=== PATIENT | female | born 1960 | race Caucasian/White ===

== ENCOUNTER 2023-07-18 16:58 | Inpatient (IN) | payer MEDICARE, SELFPAY ==
[2023-07-15 20:10] VITALS: BP 168/125
[2023-07-15 20:32] VITALS: BP 143/91
[2023-07-15 20:39] VITALS: BMI 16.8
[2023-07-15 20:49] LABS: % Basophils 0.3 % (0-2); % Immature Granulocytes 0.4 % (0-0.5); % Lymphocytes 10.8 % (20.5-51.1); % Monocytes 5.1 % (1.7-9.3); % Neutrophils 82.4 % (42.2-75.2); Absolute Basophils 0.1 10^3/uL (0-0.2); Absolute Eosinophils 0.2 10^3/uL (0-0.7); Absolute Immature Granulocytes 0.1 10^3/uL (0-0.05); Absolute Lymphocytes 1.9 10^3/uL (1.2-3.4); Absolute Monocytes 0.9 10^3/uL (0.1-0.6); Absolute Neutrophils 14.3 10^3/uL (1.4-6.5); Hematocrit 45.5 % (37.0-47.0); Hemoglobin 16.3 g/dL (12.0-16.0); Mean Corp Hgb Conc. 35.8 g/dL (33.0-37.0); Mean Corpuscular Hgb 34.9 pg (27.0-31.0); Mean Corpuscular Volume 97.4 fL (81.0-99.0); Mean Platelet Volume 9.8 fL (7.4-10.4); Nucleated Red Blood Cells % 0 %; Platelet Count 347 10^3/uL (130-400); Red Blood Cell Count 4.67 10^6/uL (4.20-5.40); Red Cell Dist. Width 12.4 % (11.5-14.5); White Blood Cell Count 17.4 10^3/uL (4.8-10.8)
[2023-07-15] MEDS: DILAUDID 1 MG IV ×2 (20:58→22:45)
[2023-07-15 21:00] VITALS: BP 148/94
[2023-07-15 21:16] LABS: ALT (SGPT) 20 U/L (0-35); AST (SGOT) 25 U/L (14-36); Albumin 4.4 g/dl (3.5-5.0); Alkaline Phosphatase 139 U/L (38-126); Blood Urea Nitrogen 35 mg/dl (7-17); Calcium 10.6 mg/dl (8.4-10.2); Carbon Dioxide 31 mmol/L (22-30); Chloride 102 mmol/L (98-107); Estimated Creatinine Clearance 75 ml/min; Glucose 124 mg/dl (70-99); Lipase 89 U/L (23-300); Potassium 3.6 mmol/L (3.5-5.1); Sodium 141 mmol/L (135-145); Total Bilirubin 0.3 mg/dl (0.2-1.3); Total Protein 7.3 g/dl (6.3-8.2); eGFR > 60.00
--- NOTE | 2023-07-15 21:54 | ED.GENMED ---
History of Present Illness
General
Chief Complaint: Abdominal Pain
Source: patient
Exam Limitations: none
Time Seen by Provider: 07/15/23 20:56
Nursing documentation reviewed up to this point in time: agreed with
Travel History
Have you had any contact with someone who has COVID-19?: No
Do you have any symptoms of coronavirus? Fever > 100 degrees, chills, cough, shortness of breath, sore throat, loss of taste or smell, muscle aches, or headache?: No
History of Present Illness
History of Present Illness:
The patient is a 62-year-old female with a past medical history of chronic pain on chronic opioids. Patient reports that she frequently has episodes of vomiting abdominal pain but since 2 AM this morning, she has had extreme right-sided abdominal
pain and multiple episodes of vomiting. The patient also reports mild diarrhea.
Past History
Past History
ED Past Medical History: Asthma, Fibromyalgia, HTN and Other (Joint pain)
ED Past Surgical History: Appendectomy (questionable) and Other (Colostomy with hernia)
Social History
Tobacco: Smoker
Alcohol: None
Drug: None
Personal: Other (Seperated)
Living: other
Employment: Other
Family History
Family History: Other
Review of Systems
Review of Systems
Allergies reviewed?: Yes
All Other Systems: ROS reviewed and negative except as documented in HPI and ROS
Constitutional: Reports no symptoms
EENT: Reports no symptoms
Respiratory: Reports no symptoms
Cardiac: Reports no symptoms
ABD/GI: Reports abdominal pain, vomiting and diarrhea
: Reports no symptoms
Musculoskeletal: Reports no symptoms
Skin: Reports no symptoms
Neurological: Reports no symptoms
Endocrine: Reports no symptoms
Hematologic/Lymphatic: Reports no symptoms
Psychiatric: Reports no symptoms
Phy Exam
Physical Exam
Physical Exam:
Physical Exam
General: Patient appears chronically ill and cachectic. Smells of cigarettes
Neck: supple. no meningeal signs. Dry mucous membrane
Heart: Tachycardic
Lungs: no acute respiratory distress. clear bilaterally
Abdomen: Colostomy bag present. Normal bowel sounds. Right sided abdominal tenderness. Nondistended
Neuro: alert and oriented. no focal neurological deficits
Skin: no rash
Psychiatric: well kept. interactive and cooperative
Extremities: no edema. no calf tenderness. negative homans. good distal pulses
Course
Orders/Labs/Results
Orders:
Orders
07/15/23 20:42
Complete Blood Count/With Diff Urgent
Comprehensive Metabolic Panel Urgent
Lipase Urgent
07/15/23 20:56
HYDROmorphone [Dilaudid] 1 mg IV NOW STA
07/15/23 22:29
0.9% Sodium Chloride 1000 ml [Nss] 1,000 ml IV BOLUS
Iohexol [Omnipaque] See Protocol PO NOW STA
07/15/23 22:30
Ondansetron Injectable [Zofran] 4 mg IV NOW STA
07/15/23 22:42
HYDROmorphone [Dilaudid] 1 mg IV NOW STA
07/15/23 22:47
Urinalysis Reflex To Culture Urgent
Date Specimen was Collected: 07/16/23
Time Specimen was Collected: 03:01
07/15/23 23:04
Nicotine [Nicoderm Transdermal] 21 mg TRANSDERM DAILY ONE
07/16/23 00:45
CT Abd/pel (oral only)-[facility] Only Urgent
Reason For Exam: R sided abdominal pain
Abnormal Lab Results
07/15/23
20:42
WBC 17.4 H 10^3/uL
(4.8-10.8)
Hgb 16.3 H g/dL
(12.0-16.0)
MCH 34.9 H pg
(27.0-31.0)
Abs Immat Gran (auto) 0.1 H 10^3/uL
(0-0.05)
Absolute Neuts (auto) 14.3 H 10^3/uL
(1.4-6.5)
Absolute Monos (auto) 0.9 H 10^3/uL
(0.1-0.6)
Neutrophils % 82.4 H %
(42.2-75.2)
Lymphocytes % 10.8 L %
(20.5-51.1)
Carbon Dioxide 31 H mmol/L
(22-30)
BUN 35 H mg/dl
(7-17)
Creatinine 0.5 L mg/dL
(0.6-1.0)
Glucose 124 H mg/dl
(70-99)
Calcium 10.6 H mg/dl
(8.4-10.2)
Alkaline Phosphatase 139 H U/L
(38-126)
07/15/23 20:42
07/15/23 20:42
Vital Signs
Initial and Last Documented VS:
Initial Vital Signs
Temp Pulse Resp BP Pulse Ox
97.8 F 124 20 168/125 97
07/15/23 20:10 07/15/23 20:10 07/15/23 20:10 07/15/23 20:10 07/15/23 20:10
Last Documented Vital Signs
Temp Pulse Resp BP Pulse Ox
98.7 F 103 10 162/104 91
07/15/23 23:35 07/16/23 03:04 07/16/23 03:04 07/16/23 03:04 07/16/23 01:00
MDM/Problems Addressed
Differential Diagnosis Includes:
Acute cholecystitis, small bowel obstruction, acute diverticulitis
MDM/Problems Addressed:
Patient presents with acute vomiting abdominal pain
Chronic conditions affecting care: Previous abdomnial surgery
Acute Exacerbation and/or Progression of Chronic Illness: Previous abdomnial surgery
*Radiology
Radiology exam reviewed: radiology read reviewed
*Pulse Oximetry
Patient hypoxic: no
*EKG
Interpreted by ED Provider?: NA
*Apartment Leasing Specialist Interpretation
Rate: tachycardiac
Interpretation: abnormal
Rhythm: sinus
*Critical Care Note
Total Time (30-74mins, 75-104mins- exclusive of procedures): Not Applicable
Data Reviewed
Review of Other/Old Records Reveals: Discharge Summary (Discharge summary reviewed from January 2023 when patient was admitted for acute gastritis and intractable abdominal pain)
Source: patient
Patient Management
Discussion with other providers: Hospitalist
Escalation/DeEscalation of care consider admission/obs:
Patient is still having abdominal pain and nausea. She is tachycardic and is clinically dehydrated. CT shows no evidence of acute surgical issue. Patient's symptoms may be due to gastritis.
ED Attending Note
-
Portions of this chart may have been created with voice recognition software.� Occasional wrong word or��sound alike� substitutions may have occurred due to the inherent limitations of voice recognition software.
Discharge Plan
Departure
Patient Disposition: Admit
Date of Disposition: 07/16/23
Time of Disposition: 03:06
Admit to: Med/Surg
Presentation/result/management discussed w/ accepting MD/DO: Hospitalist
Patient with high blood pressure during this ER visit?: Yes
Condition: Good
Discharge Problem:
Dehydration, Severe protein-calorie malnutrition, Intractable abdominal pain
Prescriptions:
No Action
cyclobenzaprine 10 MG tablet
10 mg PO DAILYPRN PRN (Reason: muscle spasm)
Savella 100 MG tablet
100 mg PO DAILY@0000
polyethylene glycol 3350 [Miralax] 17 gram Powder In Packet
17 g PO DAILY PRN (Reason: constipation)
metoprolol succinate 200 mg Tablet Extended Release 24 Hr
100 mg PO DAILY@0000
Theragen Tablet
1 tab PO HS
morphine 200 mg Tablet Extended Release
200 mg PO Q8H
Patient Comments:
01/29/2023, patient filled this medication on 01/24/2023 for 90 tablets according to PDMP.
clonidine 0.3 mg/24 hr Patch Weekly
1 patch TRANSDERMAL QWEEK
Patient Comments:
02/08/2023, patient is currently wearing a patch on her left chest. Patient states that the patch should have been changed yesterday (02/07/2023) but she did not change it.
Excedrin Migraine 250-250-65 mg Tablet
2 tab PO Q6H PRN (Reason: migraine)
oxycodone 20 mg Tablet
40 mg PO Q8H PRN (Reason: severe withdrawal)
Patient Comments:
02/08/2023, patient filled this medication on 01/24/2023 for 90 tablets according to PDMP.
oxycodone 20 mg Tablet
20 mg PO Q8H PRN (Reason: mild withdrawal)
Patient Comments:
02/08/2023, patient filled this medication on 01/24/2023 for 90 tablets according to PDMP.
Referrals:
UNKNOWN - PT DOES,NOT KNOW [Family Provider] -
Interventions
Interventions:
*Risk Screen - Suicide Last Done: 07/15/23 20:39
*General Assessment Last Done: 07/15/23 20:20
*Neglect/Abuse Screening Last Done: 07/15/23 20:20
ED- Fall Risk Assessment Last Done: 07/15/23 20:20
*ED COVID-19 Vaccine History Last Done: 07/15/23 20:20
IM-Dcnwqr-Ushdiekvbe Assessment Last Done: 07/15/23 23:30
Discharge Date and Time
Print Language: MALAY
[2023-07-15 22:00] VITALS: BP 154/93
[2023-07-15] MEDS: OMNIPAQUE 50 ML PO (22:37)
[2023-07-15] MEDS: ZOFRAN 4 MG IV (22:37)
[2023-07-15] MEDS: NSS 1000 IV (22:37)
[2023-07-15 23:00] VITALS: BP 144/100
[2023-07-15] MEDS: NICODERM TRANSDERMAL 21 MG TRANSDERM (23:31)
[2023-07-16] VITALS (14 sets, daily range): BP systolic 119–162; BP diastolic 74–104; PULSE 84–96; BMI 16.2
[2023-07-16 03:23] LABS: Urine Albumin Negative (Neg - Trace); Urine Bilirubin Negative (Negative); Urine Character Clear (Clear); Urine Color Yellow; Urine Glucose Negative (Negative); Urine Ketone Negative (Negative); Urine Leukocyte 2+ (Negative); Urine Nitrite Negative (Negative); Urine Occult Blood Negative (Negative); Urine Specific Gravity 1.015 (<1.030); Urine Urobilinogen Negative (Neg - 1+); Urine pH 6.5 (5.0-9.0)
[2023-07-16 03:33] LABS: Urine Squamous Cell 21-25 /LPF (Few)
[2023-07-16 03:34] LABS: Urine Bacteria Few (Negative); Urine White Cell 26-30 /HPF (0-5)
[2023-07-16] MEDS: DILAUDID 1 MG IV (04:28)
--- NOTE | 2023-07-16 04:53 | HPS.HSE ---
Family Physician
-
Family Physician: NOT KNOW UNKNOWN - PT DOES
Chief Complaint
-
Abd Pain
History of Present Illness
Patient is a 62y F with PMH significant for chronic pain syndrome and chronic opioid dependence who presents to ED complaining of abdominal pain. Patient states that she has had issues with chronic abdominal pain for the past 1 1/2 years or so.
She notes that she is incapable to eating solid foods. She has episodes of 'projectile' vomiting when she attempts to do so. Patient states that she had N/V on evening around 2 AM. She then developed LUQ abdominal pain with radiation
into the L flank which persisted throughout this evening prompting evaluation in the ED.
Patient had similar presentation in 01/2023.
Patient is on chronic pain medications including Fentanyl 200mcg every 3 days. She states that she 'starts getting withdrawal' on Day #2 and she takes oxycodone - for withdrawal symptoms > breakthrough pain.
She denies any recent changes in ostomy function, stools appearance, etc.
She denies any fevers / chills.
In the ED, she complains of headache typical of her usual migraines.
Medical History
Past Medical History
Past Medical History: Reports Other
Additional Past Medical History:
Chronic Pain Syndrome
Chronic Opioid Dependence
Fibromyalgia
COPD
Migraine Headache
Parastomal Hernia
Past Surgical History: Reports Other
Additional Past Surgical History:
Appendectomy
Partial Colectomy / Colostomy Formation
Social History
Tobacco: Smoker (Current every day smoker. 2-3 ppd. > 100 pack years.)
Alcohol: None
Drug: None
Family History
Family History: Not pertinent
Allergies / Home Medications
Allergies reflects when Allergies were last updated in [facility].
Home Medications with original date entered in [facility]
Allergy/Medication List:
Allergies
Allergy/AdvReac Type Severity Reaction Status Date / Time
Cephalosporins Allergy Unknown Verified 07/15/23 20:19
clotrimazole Allergy Unknown Verified 07/15/23 20:19
nystatin Allergy Unknown Verified 07/15/23 20:19
Penicillins Allergy Unknown Verified 07/15/23 20:19
Tetracyclines Allergy Unknown Verified 07/15/23 20:19
triamcinolone Allergy Unknown Verified 07/15/23 20:19
Home Medications
cyclobenzaprine 10 mg tablet 10 mg PO DAILYPRN PRN muscle spasm 11/07/18
milnacipran 100 mg tablet (Savella) 100 mg PO DAILY@0000 fibromyalgia 11/07/18
twtdjnh-duarnjlufylzk-msheajcb 250 mg-250 mg-65 mg tablet (Excedrin Migraine) 2 tab PO Q6H PRN migraine 02/08/23
clonidine 0.3 mg/24 hr weekly transdermal patch 1 patch transdermal QWEEK Blood Pressure 02/08/23
metoprolol succinate 200 mg tablet,extended release 24 hr 100 mg PO DAILY@0000 Blood Pressure 02/08/23
oxycodone 20 mg tablet 20 mg PO Q8H PRN mild withdrawal 02/08/23
oxycodone 20 mg tablet 40 mg PO Q8H PRN severe withdrawal 02/08/23
polyethylene glycol 3350 17 gram oral powder packet (Miralax) 17 g PO DAILY PRN constipation 02/08/23
therapeutic multivitamin 1 tab PO HS supplement 02/08/23
fentanyl 100 mcg/hr transdermal patch 2 patch transdermal Q72H 07/16/23
simethicone 80 mg chewable tablet 80 mg PO QID PRN gas pain 07/16/23
Review of Systems
-
History Source: Patient
A 12 point ROS was completed and negative except as noted: Yes
Constitutional: Reports Fatigue; Denies Fever or Chills
Respiratory: Denies Cough or Trouble Breathing
Cardiac: Denies Chest Pain or Palpitations
Abdomen/GI: Reports Abdominal Pain, Nausea, Vomiting and Anorexia; Denies Diarrhea, Constipated, Bloody Stools or Black Stools
: Reports Flank Pain; Denies Dysuria or Frequency
Musculoskeletal: Reports Joint Pain; Denies Edema
Neurological: Reports Headache; Denies Dizzy, Weakness or Numbness
Psych: Reports Depression; Denies Anxiety
Physical Exam
Vital Signs
Vital Signs
Temp Pulse Resp BP Pulse Ox
98.6 F 102 14 123/91 92
07/16/23 03:00 07/16/23 04:15 07/16/23 04:15 07/16/23 04:00 07/16/23 04:15
Physical Exam
General: Other (62y F appears older than stated age - in moderate distress due to pain.)
HEENT: Other (Dry MM, frail / cachectic.)
Respiratory: Other (Few scattered squeaks and wheezes. No focal rales / rhonchi.)
Cardiac: S1/S2 and Regular Rhythm
GI: Soft, Non Distended, Normal Bowel Sounds and Other (LLQ ostomy with parastomal hernia. No tenderness, bleeding or discharge around ostomy. Pos voluntary guarding / apparent tenderness LUQ.)
Musculoskeletal: No Clubbing, No Cyanosis and No Edema
Neuro: AO x 3
Laboratory Results
-
07/15/23 20:42
07/15/23 20:42
Laboratory Results
Total Bilirubin 0.3 mg/dl (0.2-1.3) 07/15/23 20:42
AST 25 U/L (14-36) 07/15/23 20:42
ALT 20 U/L (0-35) 07/15/23 20:42
Alkaline Phosphatase 139 U/L (38-126) H 07/15/23 20:42
Lipase 89 U/L (23-300) 07/15/23 20:42
Impression/Plan
-
A/P: Patient is a 62y F with PMH significant for chronic pain and chronic opioid use who presents to ED complaining of abdominal pain.
Acute on Chronic Abdominal Pain
Chronic Pain Syndrome
Chronic Opioid Dependence
- Observe overnight for further evaluation / attempts at symptom control.
- CT without clear evidence of etiology for her new pain.
- Continue usual home med regimen. IV Dilaudid for breakthrough pain.
- GI evaluation for additional recommendations.
- IV PPI, avoid NSAIDs, etc.
- Follow for any new / worsening symptoms.
- Follow-up with Pain Management as an outpatient.
- Continue efforts to reduce chronic narcotic dosing (was previously on 400mcg dose of Fentanyl).
Tobacco Use Disorder
- Smokes in excess of 2 ppd.
- Patient notes that she has cough and breathing difficulty when she is in her room - as do other family members.
- I suggested that this may be due to the significant amount of smoking / accumulation in that room, but she does not believe this is the case.
- Nebs PRN.
- Strongly encourage smoking cessation.
Leukocytosis
- This appears to be somewhat chronic.
- No other findings at present to suggest infectious process.
- Observe off of abx.
- Consider formal Hematology evaluation.
DVT Prophylaxis: Lovenox
Code Status: Full
[2023-07-16] MEDS: LR 1000 IV ×2 (07:13→16:55)
[2023-07-16] MEDS: DURAGESIC 100 MCG/HR PATCH 2 PATCH TRANSDERM (07:48)
[2023-07-16] MEDS: CATAPRES-TTS-3 0.299999999999999989 MG TRANSDERM (07:54)
[2023-07-16] MEDS: MIRALAX PO (08:00)
--- NOTE | 2023-07-16 11:29 | CON.GI ---
Addendum entered and electronically signed by Gerald Malloy MD 07/16/23 12:03:
Patient seen and examined, agree with PA phil. Patient presents with increasing abdominal pain and vomiting. These symptoms are similar to her presentation in January where EGD showed multiple nonbleeding duodenal ulcers. She has been
noncompliant and PPI, and still taking NSAIDs including Excedrin. She is on chronic narcotics, though no change in these medications. There is no signs of bleeding and she has been hemodynamically stable. CT scan and labs were essentially
unremarkable, on exam has mild left-sided tenderness. She did have some weight loss though is now most recently been stable. Most likely etiology of her pain is likely from duodenal ulcers again in the setting of Excedrin without PPI, with likely
chronic underlying delayed gastric emptying secondary to narcotics. At this point we will continue clear liquid diet, PPI twice daily, plan repeat EGD that she was supposed to have as an outpatient on Tuesday. Again stressed the importance of not
taking Excedrin or other NSAIDs and continuing PPI.
Original Note:
Consultation
-
Date/Time Consultation Requested: 07/16/23 0602
Date/Time Consultation Performed: 07/16/23 1100
Requesting Provider: Dr. Amanda
Performing Provider: Dr. Malloy / Loni Brennan PA-C
Reason for Consultation: epigastric pain/nausea/vomiting
Medical History
Chief Complaint / HPI
Chief Complaint: abdominal pain
History of Present Illness:
This is a 62 year old female with a past medical history of asthma/COPD, chronic pain syndrome on chronic opiates, fibromyalgia, tobacco use, h/o prior bowel obstruction with partial colectomy and colostomy (2013), and duodenal ulcers who complains
of worsening upper abdominal pain. Patient was admitted at in January 2023 with similar symptoms and was found to have severe gastritis and multiple non-bleeding duodenal ulcers. She is known to our GI practice, saw me in May in the office and
was scheduled for repeat endoscopy on June [address] Pryor to assess ulcer healing. Unfortunately patient canceled procedure. She is noncompliant with taking her PPI or avoiding NSAIDs. She states that she did not tolerate pantoprazole due to
gas/bloating, so started taking Zantac instead. She continues to take Excedrin every day. No other NSAIDs. She states she has had ongoing abdominal pain but that it worsened significantly yesterday, with nausea and episodes of projectile vomiting.
No hematemesis or coffee grounds emesis. She notes no black, tarry or bloody output from the colostomy. Weight has been stable; she remains on a liquid diet, drinking Boost multiple times a day. Labs in the ER reviewed: WBC 17.4, Hgb 16.3, platelet
347, Na 141, K 3.6, Cl 102, CO2 31, BUN 35, creatinine 0.5, bili 0.3, AST 25, ALT 20, alk phos 139, lipase 89.
Past Medical History
Past Medical History: Asthma, COPD, Fibromyalgia and Other (chronic pain syndrome (on chronic narcotic pain meds), tobacco use, bowel obstruction w/ partial colectomy and colostomy (2013), PUD)
Past Surgical History: Appendectomy and Other (see above)
Social History
Tobacco: Smoker (3 PPD)
Alcohol: None
Drug: None
Family History
Family History: Other (no family history of GI malignancies)
Allergies / Home Medications
Allergy/AdvReac Type Severity Reaction Status Date / Time
Cephalosporins Allergy Unknown Verified 07/15/23 20:19
clotrimazole Allergy Unknown Verified 07/15/23 20:19
nystatin Allergy Unknown Verified 07/15/23 20:19
Penicillins Allergy Unknown Verified 07/15/23 20:19
Tetracyclines Allergy Unknown Verified 07/15/23 20:19
triamcinolone Allergy Unknown Verified 07/15/23 20:19
�Medication �Instructions �Recorded
cyclobenzaprine 10 mg tablet 10 mg PO DAILYPRN PRN muscle spasm 11/07/18
milnacipran 100 mg tablet (Savella) 100 mg PO DAILY@0000 fibromyalgia 11/07/18
kzwhwnk-pyukfahiutzlu-jmiawuim 250 2 tab PO Q6H PRN migraine 02/08/23
mg-250 mg-65 mg tablet (Excedrin
Migraine)
clonidine 0.3 mg/24 hr weekly 1 patch transdermal QWEEK Blood 02/08/23
transdermal patch Pressure
metoprolol succinate 200 mg 100 mg PO DAILY@0000 Blood Pressure 02/08/23
tablet,extended release 24 hr
oxycodone 20 mg tablet 20 mg PO Q8H PRN mild withdrawal 02/08/23
oxycodone 20 mg tablet 40 mg PO Q8H PRN severe withdrawal 02/08/23
polyethylene glycol 3350 17 gram 17 g PO DAILY PRN constipation 02/08/23
oral powder packet (Miralax)
therapeutic multivitamin 1 tab PO HS supplement 02/08/23
fentanyl 100 mcg/hr transdermal 2 patch transdermal Q72H 07/16/23
patch
simethicone 80 mg chewable tablet 80 mg PO QID PRN gas pain 07/16/23
Review of Systems
-
History Source: Patient
All other systems: A 12 pt ROS was Negative except as stated above in HPI
Vital Signs
Temp Pulse Resp BP Pulse Ox
98.6 F 96 6 147/89 91
07/16/23 03:00 07/16/23 09:45 07/16/23 09:45 07/16/23 09:00 07/16/23 09:45
Physical Exam
Exam
General: Other (cachectic)
Respiratory: Clear
Cardiac: Regular Rhythm
GI: Soft, Non Distended, Normal Bowel Sounds and Tender (+epigastric tenderness; left sided colostomy with brown stool)
Skin: Warm and Dry
Neuro: AO x 3
Psych: Calm
Results
WBC 17.4 10^3/uL (4.8-10.8) H 07/15/23 20:42
Hgb 16.3 g/dL (12.0-16.0) H 07/15/23 20:42
Hct 45.5 % (37.0-47.0) 07/15/23 20:42
MCV 97.4 fL (81.0-99.0) 07/15/23 20:42
Plt Count 347 10^3/uL (130-400) 07/15/23 20:42
Absolute Neuts (auto) 14.3 10^3/uL (1.4-6.5) H 07/15/23 20:42
Sodium 141 mmol/L (135-145) 07/15/23 20:42
Potassium 3.6 mmol/L (3.5-5.1) 07/15/23 20:42
Chloride 102 mmol/L (98-107) 07/15/23 20:42
Carbon Dioxide 31 mmol/L (22-30) H 07/15/23 20:42
BUN 35 mg/dl (7-17) H 07/15/23 20:42
Creatinine 0.5 mg/dL (0.6-1.0) L 07/15/23 20:42
Calcium 10.6 mg/dl (8.4-10.2) H 07/15/23 20:42
Total Bilirubin 0.3 mg/dl (0.2-1.3) 07/15/23 20:42
AST 25 U/L (14-36) 07/15/23 20:42
ALT 20 U/L (0-35) 07/15/23 20:42
Alkaline Phosphatase 139 U/L (38-126) H 07/15/23 20:42
Lipase 89 U/L (23-300) 07/15/23 20:42
Diagnostic Image Results:
CT Abdomen/Pelvis, 07/16/23:
Impression:
There is a left anterior abdominal and pelvic wall colostomy with a large parastomal hernia. No evidence for strangulation. No evidence for bowel obstruction.
No evidence for free intraperitoneal air.
Bilateral small nephroliths. No evidence for ureteral calculus.
Prior GI Procedures:
EGD:
02/10/23, Dr. Pryor
LA Grade A reflux esophagitis with no bleeding.
Biopsied.
- Abnormal esophageal motility with distal spasm.
- Significant gastritis. Biopsied.
- Multiple moderate sized non-bleeding duodenal ulcers
throughout the 2nd portion and causing narrowing of
the duodenum.
Colonoscopy: Never
Assessment / Plan
-
62 year old female with a history of asthma/COPD, chronic pain syndrome on chronic opiates, fibromyalgia, tobacco use, h/o prior bowel obstruction with partial colectomy and colostomy (2013), and duodenal ulcers who complains of worsening upper
abdominal pain. Patient was admitted at in January 2023 with similar symptoms and was found to have severe gastritis and multiple non-bleeding duodenal ulcers. She is known to our GI practice, saw me in May in the office and was scheduled for
repeat endoscopy on June [address] Pryor to assess ulcer healing. Unfortunately patient canceled procedure. She is noncompliant with taking her PPI or avoiding NSAIDs. She states that she did not tolerate pantoprazole due to gas/bloating, so started
taking Zantac instead. She continues to take Excedrin every day. No other NSAIDs. She states she has had ongoing abdominal pain but that it worsened significantly yesterday, with nausea and episodes of projectile vomiting. No hematemesis or coffee
grounds emesis. She notes no black, tarry or bloody output from the colostomy. Weight has been stable; she remains on a liquid diet, drinking Boost multiple times a day. Labs in the ER reviewed: WBC 17.4, Hgb 16.3, platelet 347, Na 141, K 3.6, Cl
102, CO2 31, BUN 35, creatinine 0.5, bili 0.3, AST 25, ALT 20, alk phos 139, lipase 89.
IMPRESSION / PLAN:
Abdominal Pain, suspect PUD/gastritis
- pt with known duodenal ulcers, noncompliant with taking PPI and avoiding NSAIDs
- continue IV PPI (Protonix)
- antiemetics PRN
- will plan for endoscopy - to discuss timing further with Dr. Malloy
Chronic Nausea, likely multifactorial secondary to opioid dependency, gastritis
- plan as above
We will follow.
-
-
Thank you for consultation and allowing me to participate in the patient's care. Please call the network operations analyst GI physician during the after hours with any questions or concerns.
--- NOTE | 2023-07-16 12:24 | W.PN.HOSP.TC ---
Today's Communication/Plan
-
.
Assessment / Plan
Assessment / Plan
Physical Exam
General: Other (62y F appears older than stated age - in moderate distress due to pain.)
HEENT: Other (Dry MM, frail / cachectic.)
Respiratory: Other (Few scattered squeaks and wheezes. No focal rales / rhonchi.)
Cardiac: S1/S2 and Regular Rhythm
GI: Soft, Non Distended, Normal Bowel Sounds and Other (LLQ ostomy with parastomal hernia. No tenderness, bleeding or discharge around ostomy. Pos voluntary guarding / apparent tenderness LUQ.)
Musculoskeletal: No Clubbing, No Cyanosis and No Edema
Neuro: AO x 3
Psych: no agitation
Patient is a 62y F with PMH significant for chronic pain and chronic opioid use who presents to ED complaining of abdominal pain.
Acute on Chronic Abdominal Pain
Chronic Pain Syndrome
Chronic Opioid Dependence
Better controlled
She requested Flexeril BID PRN
- CT without clear evidence of etiology for her new pain.
- Continue usual home med regimen. IV Dilaudid for breakthrough pain.
- IV PPI, avoid NSAIDs, etc.
- Follow for any new / worsening symptoms.
- Follow-up with Pain Management as an outpatient.
- Continue efforts to reduce chronic narcotic dosing (was previously on 400mcg dose of Fentanyl).
Tobacco Use Disorder
- Smokes in excess of 2 ppd.
- Patient notes that she has cough and breathing difficulty when she is in her room - as do other family members.
- I suggested that this may be due to the significant amount of smoking / accumulation in that room, but she does not believe this is the case.
- Nebs PRN.
- Strongly encourage smoking cessation.
Leukocytosis
- This appears to be somewhat chronic.
- No other findings at present to suggest infectious process.
- Observe off of abx.
- Consider formal Hematology evaluation.
DVT Prophylaxis: Lovenox
Code Status: Full
Total time spent to see the patient, examine the patient on the floor, review data and lab results, discuss treatment plan with patient, nursing staff around 45 minutes
Anticipated Discharge: 24 - 48 hours
Subjective/Interval History
-
Date of Service: July 16, 2023
Doing better
No chets pain
Objective Data
-
Vital Signs:
Vital Signs
Temp Pulse Resp BP Pulse Ox
98.6 F 96 6 147/89 91
07/16/23 03:00 07/16/23 09:45 07/16/23 09:45 07/16/23 09:00 07/16/23 09:45
[2023-07-16] MEDS: TYLENOL PO (12:45)
[2023-07-16] MEDS: TOPROL XL 100 MG PO (12:45)
[2023-07-16] MEDS: DILAUDID 0.5 MG IV ×2 (13:31→21:20)
[2023-07-16] MEDS: FLEXERIL 10 MG PO (15:20)
[2023-07-16] MEDS: ROXICODONE 20 MG PO (16:48)
[2023-07-16] MEDS: TYLENOL 1000 MG PO ×2 (16:48→21:17)
[2023-07-16] MEDS: LOVENOX 40 MG SC (16:56)
[2023-07-16] MEDS: PROTONIX IV 40 MG IV (19:58)
[2023-07-16] MEDS: NSS (PRESERVATIVE FREE) 10 ML IV (19:58)
[2023-07-17] MEDS: NON-FORMULARY ITEM 100 MG PO ×2 (00:28→23:11)
[2023-07-17] MEDS: ROXICODONE 20 MG PO ×3 (01:04→20:59)
[2023-07-17] MEDS: DILAUDID 0.5 MG IV ×5 (01:20→21:40)
[2023-07-17] MEDS: ZOFRAN 4 MG IV ×3 (01:24→16:33)
[2023-07-17] MEDS: LR 1000 IV ×2 (05:42→16:31)
[2023-07-17 06:00] VITALS: BMI 16.0
[2023-07-17 07:00] VITALS: BP 158/96
[2023-07-17 07:15] LABS: Hematocrit 41.7 % (37.0-47.0); Hemoglobin 14.1 g/dL (12.0-16.0); Mean Corp Hgb Conc. 33.8 g/dL (33.0-37.0); Mean Corpuscular Hgb 34.2 pg (27.0-31.0); Mean Corpuscular Volume 101.2 fL (81.0-99.0); Platelet Count 240 10^3/uL (130-400); Red Blood Cell Count 4.12 10^6/uL (4.20-5.40); Red Cell Dist. Width 12.1 % (11.5-14.5); White Blood Cell Count 11.1 10^3/uL (4.8-10.8)
[2023-07-17 07:46] LABS: Blood Urea Nitrogen 17 mg/dl (7-17); Carbon Dioxide 29 mmol/L (22-30); Chloride 103 mmol/L (98-107); Estimated Creatinine Clearance 69 ml/min; Glucose 86 mg/dl (70-99); Potassium 3.5 mmol/L (3.5-5.1); Sodium 139 mmol/L (135-145); eGFR > 60.00
[2023-07-17] MEDS: NSS (PRESERVATIVE FREE) 10 ML IV ×2 (08:31→20:48)
[2023-07-17] MEDS: TOPROL XL 100 MG PO (08:32)
[2023-07-17] MEDS: MIRALAX 17 GRAMS PO (08:32)
[2023-07-17] MEDS: PROTONIX IV 40 MG IV ×2 (08:32→20:48)
[2023-07-17] MEDS: TYLENOL 1000 MG PO ×3 (08:32→21:39)
[2023-07-17] MEDS: FLEXERIL 10 MG PO ×2 (09:42→20:59)
--- NOTE | 2023-07-17 10:20 | W.PN.HOSP.TC ---
Today's Communication/Plan
-
.
Assessment / Plan
Assessment / Plan
Physical Exam
General: Other (62y F appears older than stated age - no respiratory distress.)
HEENT: No deformitis
Respiratory: Other (Few scattered squeaks and wheezes. No focal rales / rhonchi.)
Cardiac: S1/S2 and Regular Rhythm
GI: Soft, Non Distended, Normal Bowel Sounds and Other (LLQ ostomy with parastomal hernia. No tenderness, bleeding or discharge around ostomy. Pos voluntary guarding / apparent tenderness LUQ.)
Musculoskeletal: No Clubbing, No Cyanosis and No Edema
Neuro: AO x 3
Psych: no agitation
Patient is a 62y F with PMH significant for chronic pain and chronic opioid use who presents to ED complaining of abdominal pain.
Acute on Chronic Abdominal Pain/ Chronic Pain Syndrome with opioid dependence
She reports pain is the same with no improvement. Pain in upper abdomen. Known duodenal ulcers in the past. No fever.
- CT abdomen/ pelvis, no acute findings.
- Continue usual home med regimen with oxycodone, Fentanyl, Flexeril. IV Dilaudid for breakthrough pain.
- IV PPI, avoid NSAIDs.
- Continue efforts to reduce chronic narcotic dosing (was previously on 400mcg dose of Fentanyl).
- Possible plan for EGD
Appreciate GI help
Tobacco Use Disorder
- Smokes in excess of 2 ppd.
- Nebs PRN.
- Strongly encourage smoking cessation.
Leukocytosis
- This appears to be somewhat chronic.
- No other findings at present to suggest infectious process.
- Observe off of abx.
# Severe protein-caloric malnutrition
# Hx of Tachycardia, on BB.
DVT Prophylaxis: Lovenox
Code Status: Full
Total time spent to see the patient, examine the patient on the floor, review data and lab results, discuss treatment plan with patient, nursing staff around 55 minutes
Anticipated Discharge: 24 - 48 hours
Subjective/Interval History
-
Date of Service: July 17, 2023
She report the pain is same quality in abdomen and with nausea
Objective Data
-
Labs:
Laboratory Results
07/17/23
06:42
WBC 11.1 H
Hgb 14.1
Hct 41.7
Plt Count 240 D
Sodium 139
Potassium 3.5
Chloride 103
Carbon Dioxide 29
BUN 17
Creatinine 0.5 L
Glucose 86
Calcium 10.0
Vital Signs:
Vital Signs
Temp Pulse Resp BP Pulse Ox
98.8 F 82 16 158/84 93
07/17/23 07:00 07/17/23 08:32 07/17/23 07:00 07/17/23 08:32 07/17/23 07:00
I&O
07/16/23 07/17/23 07/18/23
06:59 06:59 06:59
Intake Total 1200 / 1200
Balance 1200 / 1200
[2023-07-17] MEDS: NICODERM TRANSDERMAL 14 MG TRANSDERM (11:15)
--- NOTE | 2023-07-17 14:36 | W.PN.GI.CBS2 ---
Addendum entered and electronically signed by Pete Yu MD 07/17/23 14:44:
Nursing contacted me patient with choking with drinking.
Would recommend speech path eval but with EGD tmwr should not be done pre-procedure as needs to be NPO
Original Note:
Today's Communication / Plan
-
egd tmwr
Assessment / Plan
-
62 year old female with a history of asthma/COPD, chronic pain syndrome on chronic opiates, fibromyalgia, tobacco use, h/o prior bowel obstruction with partial colectomy and colostomy (2013), and duodenal ulcers who complains of worsening upper
abdominal pain. Patient was admitted at in January 2023 with similar symptoms and was found to have severe gastritis and multiple non-bleeding duodenal ulcers. She is known to our GI practice, saw me in May in the office and was scheduled for
repeat endoscopy on June [address] Pryor to assess ulcer healing. Unfortunately patient canceled procedure. She is noncompliant with taking her PPI or avoiding NSAIDs. She states that she did not tolerate pantoprazole due to gas/bloating, so started
taking Zantac instead. She continues to take Excedrin every day. No other NSAIDs. She states she has had ongoing abdominal pain but that it worsened significantly yesterday, with nausea and episodes of projectile vomiting. No hematemesis or coffee
grounds emesis. She notes no black, tarry or bloody output from the colostomy. Weight has been stable; she remains on a liquid diet, drinking Boost multiple times a day. Labs in the ER reviewed: WBC 17.4, Hgb 16.3, platelet 347, Na 141, K 3.6, Cl
102, CO2 31, BUN 35, creatinine 0.5, bili 0.3, AST 25, ALT 20, alk phos 139, lipase 89.
Leukocytosis improved today.
IMPRESSION / PLAN:
Abdominal Pain, suspect PUD/gastritis
- pt with known duodenal ulcers, noncompliant with taking PPI and avoiding NSAIDs
- continue IV PPI (Protonix) BID
- antiemetics PRN
- EGD ion Monday 07/17
- counseled to avoid NSAIDs pt states difficult bc of migraines recommend she d/w PCP
Chronic Nausea and regurgitation, likely multifactorial secondary to opioid dependency, gastritis
- plan as above
Subjective
Subjective
Date of Service: July 17, 2023
pain a little improved but got dilaudid this am
also mentions she has chronic regurg
Objective
Data Reviewed
Laboratory Data:
Laboratory Results
07/17/23 06:42
07/17/23 06:42
Laboratory Results
Total Bilirubin 0.3 mg/dl (0.2-1.3) 07/15/23 20:42
AST 25 U/L (14-36) 07/15/23 20:42
ALT 20 U/L (0-35) 07/15/23 20:42
Alkaline Phosphatase 139 U/L (38-126) H 07/15/23 20:42
Lipase 89 U/L (23-300) 07/15/23 20:42
Vital Signs and I&O:
Vital Signs
Temp Pulse Resp BP Pulse Ox
98.8 F 82 16 158/84 93
07/17/23 07:00 07/17/23 08:32 07/17/23 07:00 07/17/23 08:32 07/17/23 07:00
I&O
07/16/23 07/17/23 07/18/23
06:59 06:59 06:59
Intake Total 1200 / 1200
Balance 1200 / 1200
Physical Exam
Physical Exam
GI: Non Distended and Non Tender
[2023-07-17 14:43] VITALS: BMI 16.0
[2023-07-17 15:00] VITALS: BP 135/90
[2023-07-17] MEDS: LOVENOX 40 MG SC (17:38)
[2023-07-17 23:31] VITALS: BP 116/88; BP 136/72; BP 136/76; PULSE 77; PULSE 84; PULSE 99
[2023-07-18] VITALS (7 sets, daily range): BP systolic 16–149; BP diastolic 73–93; PULSE 91–104; BMI 16.0
[2023-07-18] MEDS: ZOFRAN 4 MG IV (04:03)
[2023-07-18] MEDS: DILAUDID 0.5 MG IV ×4 (04:04→19:53)
[2023-07-18] MEDS: LR 1000 IV (05:08)
[2023-07-18] MEDS: NICODERM TRANSDERMAL 14 MG TRANSDERM (09:04)
[2023-07-18] MEDS: MIRALAX PO (09:11)
[2023-07-18] MEDS: PROTONIX IV 40 MG IV (09:14)
[2023-07-18] MEDS: TOPROL XL 100 MG PO (09:14)
[2023-07-18] MEDS: NSS (PRESERVATIVE FREE) 10 ML IV (09:14)
[2023-07-18] MEDS: TYLENOL 1000 MG PO ×2 (09:15→17:39)
[2023-07-18] MEDS: ROXICODONE 20 MG PO (12:11)
[2023-07-18] MEDS: CARAFATE 1 GRAM PO ×2 (12:11→17:39)
[2023-07-18] MEDS: FLEXERIL 10 MG PO (12:11)
--- NOTE | 2023-07-18 16:46 | W.PN.HOSP.TC ---
Today's Communication/Plan
-
continue PPI IV BID
clears
Assessment / Plan
Assessment / Plan
Assessment:
Acute on Chronic Abdominal Pain/Chronic Pain Syndrome with opioid dependence
She reports pain is the same with no improvement. Pain in upper abdomen. Known duodenal ulcers in the past. No fever.
- CT without acute findings
- EGD 07/17: nonbleeding duodenal ulcer
- continue PPI BID
- continue usual home med regimen with oxycodone, Fentanyl, Flexeril. IV Dilaudid for breakthrough pain.
- continue efforts to reduce chronic narcotic dosing (was previously on 400mcg dose of Fentanyl).
- appreciate GI input
Tobacco Use Disorder
- Smokes in excess of 2 ppd.
- Nebs PRN.
- Strongly encourage smoking cessation.
Leukocytosis
- This appears to be somewhat chronic.
- No other findings at present to suggest infectious process.
- Observe off of abx.
Severe protein-caloric malnutrition
Hx of Tachycardia, on BB.
DVT Prophylaxis: Lovenox
Code Status: Full
Anticipated Discharge: > 48 hours
Subjective/Interval History
-
Date of Service: July 18, 2023
s/p EGD
Objective Data
-
Vital Signs:
Vital Signs
Temp Pulse Resp BP Pulse Ox
98.5 F 92 18 143/73 95
07/18/23 15:33 07/18/23 15:33 07/18/23 15:33 07/18/23 15:33 07/18/23 15:33
I&O
07/17/23 07/18/23 07/19/23
06:59 06:59 06:59
Intake Total 1200 / 1200 1740 / 1740
Balance 1200 / 1200 1740 / 1740
Physical Exam
-
General: No Apparent Distress
HEENT: Normocephalic and Atraumatic
Respiratory: Negative Wheezes
Cardiac: Regular Rhythm
GI: Soft
Neuro: AO x 3
Psych: Calm
Data Reviewed
-
Total Time Spent with Patient (in minutes): 41
Labs: Labs Reviewed by me
--- NOTE | 2023-07-18 16:49 | CM ---
manager search reviewed patient's chart and met with patient and patient lives with her son and daughter in law in a 2 story home, patient is independent with adl's requires assist with ambulation, per patient she uses crutches, patient has a
prescription plan and uses [facility] pharmacy.
PCP: Dr Leslie Gonzalez.
Plan; Home with son and daughter in law.
[2023-07-18] MEDS: LOVENOX 40 MG SC (17:39)
--- NOTE | 2023-07-18 20:00 | PTCARENOTE ---
Pt requesting to leave AMA; her son is at bedside and reports that he will take her home. Pt is AAOx3, OUTREACH COORDINATOR Diamond Rodriguez notified that pt wants to leave AMA. IV site removed and pt belongings returned from room and med cart. Pt taken to ED
entrance via wheelchair with staff escort and son.
--- NOTE | 2023-07-18 20:08 | W.PN.UPDATE ---
Update Note
Progress Note Update
1999
notified by nurse that pt wants to sign out AMA.
At bedside pt states she is tolerating clear liquid diet and he son is here to take her home. She states her son may not be available to take her home tomorrow so she wants to leave tonight.
Explained the risks of leaving AMA have been explained including worsening GI ulcers, worsening pain, gi bleeding and even . Pt verbalized understanding of leaving against medical advice.
Explained that GI wants her to be on PPI and carafate, but with no access to send electronic scripts i cannot send her home with them. She will call GI office and obtain.
Advised her against smoking and taking NSAIDS.
AMA paper signed by pt.
== END 2023-07-18 20:30 | disposition left against medical advice (07) | DRG 383 ==
LOC: 4 WEST ACU 16:58
PROVIDERS: Emergency Medicine; ADMITTING PHYSICIAN Hospitalist; ATTENDING PHYSICIAN Internal Medicine; CONSULT PHYSICIAN Internal Medicine Gastroenterology; EMERGENCY PHYSICIAN Emergency Medicine
PROC: 0DB98ZX Excision of Duodenum, Via Natural or Artificial Opening Endoscopic, Diagnostic (ICD-10-PCS; 2023-07-18)
PROC: 0DB68ZX Excision of Stomach, Via Natural or Artificial Opening Endoscopic, Diagnostic (ICD-10-PCS; 2023-07-18)
DX: K26.9 Duodenal ulcer, unspecified as acute or chronic, without hemorrhage or perforation (principal); E43 Unspecified severe protein-calorie malnutrition; Z68.1 Body mass index [BMI] 19.9 or less, adult; G89.4 Chronic pain syndrome; D72.829 Elevated white blood cell count, unspecified; K43.5 Parastomal hernia without obstruction or gangrene; K31.89 Other diseases of stomach and duodenum; K44.9 Diaphragmatic hernia without obstruction or gangrene; K30 Functional dyspepsia; J44.89 Other specified chronic obstructive pulmonary disease; M79.7 Fibromyalgia; E86.0 Dehydration; I10 Essential (primary) hypertension; F17.210 Nicotine dependence, cigarettes, uncomplicated; G43.909 Migraine, unspecified, not intractable, without status migrainosus; R00.0 Tachycardia, unspecified; Z91.199 Patient's noncompliance with other medical treatment and regimen due to unspecified reason; Z93.3 Colostomy status; Z53.29 Procedure and treatment not carried out because of patient's decision for other reasons; Z87.19 Personal history of other diseases of the digestive system; Z90.49 Acquired absence of other specified parts of digestive tract; Z79.891 Long term (current) use of opiate analgesic; Z79.82 Long term (current) use of aspirin
CPT/HCPCS: 88305; 74176; 80048; 80053; 81003; 81015; 83690; 85025; 85027; 87086; 88342; 96361; 96374; 96375; 96376; 97162; 99285; 99406

== ENCOUNTER 2023-07-26 16:45 | Inpatient (IN) | payer MEDICARE, SELFPAY ==
[2023-07-26] VITALS (9 sets, daily range): BP systolic 86–123; BP diastolic 44–74; BMI 16.5
--- NOTE | 2023-07-26 13:59 | ED.GENMED ---
History of Present Illness
General
Chief Complaint: Abdominal Pain
Source: patient
Exam Limitations: none
Time Seen by Provider: 07/26/23 13:28
Nursing documentation reviewed up to this point in time: agreed with
Travel History
Have you had any contact with someone who has COVID-19?: No
Do you have any symptoms of coronavirus? Fever > 100 degrees, chills, cough, shortness of breath, sore throat, loss of taste or smell, muscle aches, or headache?: No
History of Present Illness
History of Present Illness:
Patient states she was sent to the ED by Dr. Pryor for admission for treatment of duodenal ulcer. She was seen in ED last week and admitted for pain. Endoscopy confirmed ulcers however she signed herself out AMA on Tuesday. She states she needed to
see her pain doctor for pain medications. Today she states she vomited 5 times this AM. Denies any bleeding. Reports generalized upper abdominal pain. Denies feve/chills. Reports she is unable to eat or drink. Brought to ED by family.
Past History
Past History
ED Past Medical History: Asthma, Fibromyalgia, HTN and Other (Joint pain)
ED Past Surgical History: Appendectomy (questionable) and Other (Colostomy with hernia)
Social History
Tobacco: Smoker
Alcohol: None
Drug: None
Personal: Other (Seperated)
Living: other
Employment: Other
Family History
Family History: Other
Review of Systems
Review of Systems
Allergies reviewed?: Yes
All Other Systems: ROS reviewed and negative except as documented in HPI and ROS
Constitutional: Reports no symptoms
EENT: Reports no symptoms
Respiratory: Reports no symptoms
Cardiac: Reports no symptoms
ABD/GI: Reports abdominal pain (upper abdominal pain)
: Reports no symptoms
Musculoskeletal: Reports no symptoms
Skin: Reports no symptoms
Neurological: Reports no symptoms
Psychiatric: Reports no symptoms
Phy Exam
General Physical Exam
General Presentation: no apparent distress
General age: appears older than age
General Skin: warm and dry
General Habitus: cachetic and frail
General Mental: alert
Pulmonary Exam
Pulmonary Exam: no respiratory distress and chest non tender
Gastrointestinal Exam
Gastrointestinal Exam: soft, no organomegaly, non distended and no cva tenderness
Palpation: generalized: Moderate tenderness
Musculoskeletal Exam
Musculoskeletal Exam: full ROM and neuro vasc intact
Skin Exam
Skin Exam: normal color, warm/dry and no rash
Psychiatric Exam
Psychiatric Exam: normal mood/affect
Course
Orders/Labs/Results
Orders:
Orders
07/26/23 13:51
CMP [Comprehensive Metabolic Panel] Urgent
Complete Blood Count/No Diff Urgent
Lipase Urgent
Comment: ADD ON
07/26/23 13:58
Add On- LAB Urgent
Tests Added?: lipase
07/26/23 14:19
0.9% Sodium Chloride 1000 ml [Nss] 1,000 ml IV BOLUS
07/26/23 14:32
Ondansetron Injectable [Zofran] 4 mg IV NOW STA
07/26/23 Dinner
Clear Liquid
07/26/23 16:27
Admit/Transfer Patient As Directed
Co-Sign Provider:
Level of Care: Inpatient admission
Assign to:: Medical/Surgical
Physician / Group: Antoni
Diagnosis: Intractable vomiting
Reason for Hospitalization: GI consult
Expected length of stay greater than two midnights?: Yes
ELOS- Estimated Length of Stay in days: 4
I certify the patient meets the requirements for IP care: Yes
07/26/23 17:27
0.45% Sodium Chloride 1000 ml [0.45%NaCl] 1,000 ml IV 75 mls/hr
Cyclobenzaprine HCl [Flexeril] 10 mg PO DAILYPRN PRN
Diphenhydramine [Benadryl] 25 mg PO HSPRN PRN
Ondansetron Injectable [Zofran] 4 mg IV Q6HPRN PRN
Pantoprazole 80 mg/100 ml Nss [Protonix] 80 mg in 100 ml IV Q10H
Polyethylene Glycol Powder [Miralax] 17 grams PO DAILYPRN PRN
Simethicone [Mylicon] 80 mg PO QIDPRN PRN
07/26/23 17:27
Fentanyl Patch Confirmation [id number]
DX Deep Vein Thrombosis Video Routine
07/26/23 17:49
Oxycodone [Roxicodone] 20 mg PO Q8HPRN PRN
07/26/23 18:00
FentaNYL 100 MCG/HR PATCH [Duragesic 100 Mcg/Hr Patch] 2 patch TRANSDERM Q72H
REMOVE fentaNYL PATCH [Remove Duragesic Patch] See Dose Instructions REMOVE Q72H
07/26/23 20:00
Heparin 5,000 units SC Q12
Sucralfate [Carafate] 1 gram PO BID
07/26/23 22:00
Multivitamin [Theragran] 1 tablet PO HS
07/27/23 08:00
Nicotine [Nicoderm Transdermal] 21 mg TRANSDERM DAILY
08/02/23 08:00
Clonidine [Aoaegoup-Gyg-4] 0.3 mg TRANSDERM Q7D
Abnormal Lab Results
07/26/23
13:51
WBC 15.7 H 10^3/uL
(4.8-10.8)
MCV 102.3 H fL
(81.0-99.0)
MCH 34.0 H pg
(27.0-31.0)
Carbon Dioxide 32 H mmol/L
(22-30)
BUN 30 H mg/dl
(7-17)
Glucose 108 H mg/dl
(70-99)
ALT 37 H U/L
(0-35)
07/26/23 13:51
07/26/23 13:51
Vital Signs
Initial and Last Documented VS:
Initial Vital Signs
Temp Pulse Resp BP Pulse Ox
97.8 F 102 20 117/74 98
07/26/23 13:12 07/26/23 13:12 07/26/23 13:12 07/26/23 13:12 07/26/23 13:12
Last Documented Vital Signs
Temp Pulse Resp BP Pulse Ox
98.0 F 90 16 117/72 94
07/29/23 15:45 07/29/23 15:45 07/29/23 15:45 07/29/23 15:45 07/29/23 15:45
*Critical Care Note
Total Time (30-74mins, 75-104mins- exclusive of procedures): Not Applicable
Update Note
Update Note:
Dr. Pryor notified by tiger text of patients arrival to ED. Patient was sent to ED by office staff. Dr. Pryor will have GI evaluate patient in ED.
ED Attending Note
-
Portions of this chart may have been created with voice recognition software.� Occasional wrong word or��sound alike� substitutions may have occurred due to the inherent limitations of voice recognition software.
Discharge Plan
Departure
Patient Disposition: Admit
Date of Disposition: 07/26/23
Time of Disposition: 15:43
Presentation/result/management discussed w/ accepting MD/DO: Hospitalist
Patient with high blood pressure during this ER visit?: No
Condition: Fair
Covid-19: Not Applicable
Discharge Problem:
Duodenal ulcer
Interventions
Interventions:
*Risk Screen - Suicide Last Done: 07/26/23 13:12
*General Assessment Last Done: 07/26/23 13:12
*Neglect/Abuse Screening Last Done: 07/26/23 13:12
*ED COVID-19 Vaccine History Last Done: 07/26/23 18:15
*Nursing Disposition Last Done: 07/26/23 17:33
FP-Mlewym-Bdutqcpijl Assessment Last Done: 07/26/23 13:59
Discharge Date and Time
Discharge Date/Time: 07/26/23 17:34
[2023-07-26 14:04] LABS: Hemoglobin 14.6 g/dL (12.0-16.0); Mean Corp Hgb Conc. 33.2 g/dL (33.0-37.0); Mean Corpuscular Volume 102.3 fL (81.0-99.0); Platelet Count 375 10^3/uL (130-400); Red Cell Dist. Width 11.9 % (11.5-14.5); White Blood Cell Count 15.7 10^3/uL (4.8-10.8)
[2023-07-26 14:17] LABS: ALT (SGPT) 37 U/L (0-35); AST (SGOT) 35 U/L (14-36); Albumin 4.1 g/dl (3.5-5.0); Alkaline Phosphatase 116 U/L (38-126); Blood Urea Nitrogen 30 mg/dl (7-17); Carbon Dioxide 32 mmol/L (22-30); Chloride 99 mmol/L (98-107); Estimated Creatinine Clearance 62 ml/min; Glucose 108 mg/dl (70-99); Lipase 85 U/L (23-300); Potassium 4.4 mmol/L (3.5-5.1); Sodium 139 mmol/L (135-145); Total Bilirubin 0.3 mg/dl (0.2-1.3); Total Protein 6.9 g/dl (6.3-8.2); eGFR > 60.00
[2023-07-26] MEDS: NSS 1000 IV (14:24)
[2023-07-26] MEDS: ZOFRAN 4 MG IV (14:46)
--- NOTE | 2023-07-26 15:35 | CON.GI ---
Addendum entered and electronically signed by Mago Pryor DO 07/26/23 18:46:
patient seen and examined independently of АНДРЕЙ. I agree with her note with my additions
Mami is a 62yoF with fibromyalgia, chronic pain on significant narcotics, tobacco use with a known duodenal stenosis from benign duodenal ulcers as she is non-compliant with ppi/carafate and continues to take Excedrin/ASA. She is here with
vomiting. She states she has been noncompliant with the PPI drugs because they made her nauseated or bloated. She was just discharged in early July for abdominal pain nausea and vomiting. She had an endoscopy on 07/18/2023 showing a stenotic
duodenum where the scope was unable to traverse the stenosis. That same night she signed out AMA. She is on high-dose narcotics for chronic pain all over her body. She has an ostomy with a large parastomal hernia containing loops of both small
and large bowel as seen on recent CT scan on 07/16/2023.
Labs today show a leukocytosis of 15,000, hemoglobin 14, platelets 375, BUN 30, creatinine 0.7, ALT 37, AST 35, total bilirubin 0.3, alkaline phosphatase 116, albumin 4.1.
Patient states she is pretty much been living off of [facility]. She has been tolerating the water while here in the hospital. She is also had issues with her narcotics which have also made her somewhat sick. Says she has to manipulate to the
parastomal hernia in order to get stool out of it.
Still says she has difficulty getting things down her esophagus and sometimes mucus will sit in her throat. She has a chronic cough and continues to smoke. Her last bowel movement was yesterday. She says she had a fever couple of days ago with a
productive cough.
# Vomiting -highly concern for duodenal obstruction considering her recent endoscopy on 07/18/2023 showed a significant stenosis with the scope was unable to pass plus or minus narcotics
-- -PPI drip, Carafate
-- Okay for Ensure clear and clear liquids as tolerated
-- Upper GI series to assess the amount of stenosis
-- Antiemetics, minimize narcotics but she will be unable to be off of them due to her high doses on a regular basis
-- Unfortunately this duodenal area is unlikely to heal in the setting of her PPI noncompliance, chronic aspirin use/and Excedrin and continued smoking
-- She is also not a great surgical candidate but a gastrojejunostomy may be in her future
Original Note:
Consultation
-
Date/Time Consultation Requested: 07/26/2023 1500
Date/Time Consultation Performed: 07/26/2023 1515
Requesting Provider: Dr. Oreilly
Performing Provider: Dr. Pryor/АНДРЕЙ Hurst
Reason for Consultation: N/V, abdominal pain
Medical History
Chief Complaint / HPI
Chief Complaint: n/v, abdominal pain
History of Present Illness:
62 year old female with a past medical history of asthma/COPD, chronic pain syndrome on chronic opiates, fibromyalgia, tobacco use, h/o prior bowel obstruction with partial colectomy and colostomy (2013) who opted not to have reversal, and duodenal
ulcers who complains of worsening upper abdominal pain. Patient was admitted at in January 2023 with similar symptoms and was found to have severe gastritis and multiple non-bleeding duodenal ulcers. She was not taking PPI secondary to abdominal
bloating. She states this happened with omeprazole as well as pantoprazole. She was admitted to the hospital on 07/16/2023 with recurrent abdominal pain as well as nausea and vomiting. She was taking Excedrin Migraine at that time that contains 250
mg of aspirin in it. Patient states that she was taking this daily. Her son tells me that she was having bloody output from her ostomy prior to her last admission. She had an EGD performed on 07/18/2023 that showed erythema in the stomach. Small
hiatal hernia. Nonbleeding duodenal ulcer with no stigmata of bleeding with stenosis. The lesion was 10 millimeters in largest dimension. This was stenotic and unable to be passed with EGD scope. The patient did sign herself out AMA on 07/18/2023
at 8 PM. The patient states that since that time she had seen her pain management doctor and he reduced her fentanyl patches to morphine pills. She states that she went through abrupt withdrawal after couple days and started with severe nausea and
vomiting as well as worsening pain. She did not take the omeprazole or pantoprazole secondary to abdominal bloating. She did not take Carafate. She called her pain management doctor who called back today. She did resume her prior fentanyl
patches 2 days ago with improvement of her withdrawal symptoms but she has still been unable to tolerate p.o. intake. This morning she had 5 episodes of profuse vomiting that her son witnessed who is at bedside who verifies this. She states her
last bowel movement was yesterday. She states she emptied 3 ostomy bags full of semisolid stool. She states that she usually has 1 bowel movement a week that is like this. She does state that approximately 6 days ago she had 102 degree fever for
24 to 48 hours with productive sputum that she states filled up '1/8 of a cup'. She did not take any medication for this or seek medical attention and that it went away on its own. The patient still continues to smoke. She does not drink any
alcohol. She does have 2 fentanyl patches on the right side of her neck. She states that she changes these every 48 hours. She states that it is prescribed to her every 72 but that her 'body metabolizes these faster'. She also has oxycodone
available to her 20 mg to use for withdrawal symptoms/breakthrough pain. She uses these approximately 3-5 times a week. The patient states that she thinks that she may be able to tolerate an upper GI study possibly.
Past Medical History
Past Medical History: Asthma, COPD, Fibromyalgia and Other (chronic pain syndrome (on chronic narcotic pain meds), tobacco use, bowel obstruction w/ partial colectomy and colostomy (2014), PUD)
Past Surgical History: Appendectomy and Other (see above)
Social History
Tobacco: Smoker (3 PPD)
Alcohol: None
Drug: None
Personal:
Living: With Family
Employment: Not Employed
Family History
Family History: Other (paternal great grandfather colon cancer, maternal grandfather 'half stomach removed')
Allergies / Home Medications
Allergy/AdvReac Type Severity Reaction Status Date / Time
Cephalosporins Allergy Unknown Verified 07/26/23 13:14
clotrimazole Allergy Unknown Verified 07/26/23 13:14
nystatin Allergy Unknown Verified 07/26/23 13:14
Penicillins Allergy Unknown Verified 07/26/23 13:14
Tetracyclines Allergy Unknown Verified 07/26/23 13:14
triamcinolone Allergy Unknown Verified 07/26/23 13:14
�Medication �Instructions �Recorded
cyclobenzaprine 10 mg tablet 10 mg PO DAILYPRN PRN muscle spasm 11/07/18
milnacipran 100 mg tablet (Savella) 100 mg PO DAILY@0000 fibromyalgia 11/07/18
clonidine 0.3 mg/24 hr weekly 1 patch transdermal QWEEK Blood 02/08/23
transdermal patch Pressure
metoprolol succinate 200 mg 100 mg PO DAILY@0000 Blood Pressure 02/08/23
tablet,extended release 24 hr
oxycodone 20 mg tablet 20 mg PO Q8HPRN PRN mild withdrawal 02/08/23
polyethylene glycol 3350 17 gram 17 g PO DAILYPRN PRN constipation 02/08/23
oral powder packet (Miralax)
therapeutic multivitamin 1 tab PO HS supplement 02/08/23
fentanyl 100 mcg/hr transdermal 2 patch transdermal Q72H 07/16/23
patch
simethicone 80 mg chewable tablet 80 mg PO QIDPRN PRN gas pain 07/16/23
diphenhydramine HCl 25 mg capsule 25 mg PO HSPRN PRN sleep 07/26/23
(Benadryl)
nicotine 21 mg/24 hr daily 1 patch transdermal DAILY 07/26/23
transdermal patch
sucralfate 1 gram tablet 1 g PO BID 07/26/23
Review of Systems
-
All other systems: A 12 pt ROS was Negative except as stated above in HPI
Vital Signs
Temp Pulse Resp BP Pulse Ox
97.8 F 102 20 117/74 98
07/26/23 13:12 07/26/23 13:12 07/26/23 13:12 07/26/23 13:12 07/26/23 13:12
Physical Exam
Exam
General: Other (Cachectic)
HEENT: Anicteric and Other (Mucous membranes dry)
Respiratory: Clear (anterior)
Cardiac: Regular Rhythm
GI: Soft, Non Distended, Normal Bowel Sounds, Tender (epigastric/periumbilical tenderness) and Other (ostomy left side)
Skin: Warm and Dry
Neuro: AO x 3
Psych: Calm
Results
WBC 15.7 10^3/uL (4.8-10.8) H 07/26/23 13:51
Hgb 14.6 g/dL (12.0-16.0) 07/26/23 13:51
Hct 44.0 % (37.0-47.0) 07/26/23 13:51
MCV 102.3 fL (81.0-99.0) H 07/26/23 13:51
Plt Count 375 10^3/uL (130-400) 07/26/23 13:51
Sodium 139 mmol/L (135-145) 07/26/23 13:51
Potassium 4.4 mmol/L (3.5-5.1) 07/26/23 13:51
Chloride 99 mmol/L (98-107) 07/26/23 13:51
Carbon Dioxide 32 mmol/L (22-30) H 07/26/23 13:51
BUN 30 mg/dl (7-17) H 07/26/23 13:51
Creatinine 0.7 mg/dL (0.6-1.0) 07/26/23 13:51
Calcium 10.0 mg/dl (8.4-10.2) 07/26/23 13:51
Total Bilirubin 0.3 mg/dl (0.2-1.3) 07/26/23 13:51
AST 35 U/L (14-36) 07/26/23 13:51
ALT 37 U/L (0-35) H 07/26/23 13:51
Alkaline Phosphatase 116 U/L (38-126) 07/26/23 13:51
Lipase 85 U/L (23-300) 07/26/23 13:51
Diagnostic Image Results:
Prior GI Procedures:
EGD: 07/18/23 ([facility]) - Normal esophagus.
- Erythematous mucosa in the stomach. Biopsied.
- Small hiatal hernia.
- Non-bleeding duodenal ulcer with no stigmata of
bleeding with stenosis. Biopsied.
Recommendation: - Delayed gastric emptying due to cratered duodenal
ulcer with stenosis, unable to pass scope. PPI BID,
will add carafate QID. NO NSAIDs or smoking. Start
clears today.
EGD 02/10/23, Dr. Pryor
LA Grade A reflux esophagitis with no bleeding.
Biopsied.
- Abnormal esophageal motility with distal spasm.
- Significant gastritis. Biopsied.
- Multiple moderate sized non-bleeding duodenal ulcers
throughout the 2nd portion and causing narrowing of
the duodenum.
Colonoscopy: Never
Assessment / Plan
-
62 year old female with a past medical history of asthma/COPD, chronic pain syndrome on chronic opiates, fibromyalgia, tobacco use, h/o prior bowel obstruction with partial colectomy and colostomy (2013) who opted not to have reversal, and duodenal
ulcers who complains of worsening upper abdominal pain. Patient was admitted at in January 2023 with similar symptoms and was found to have severe gastritis and multiple non-bleeding duodenal ulcers. She was not taking PPI secondary to abdominal
bloating. She states this happened with omeprazole as well as pantoprazole. She was admitted to the hospital on 07/16/2023 with recurrent abdominal pain as well as nausea and vomiting. She was taking Excedrin Migraine at that time that contains 250
mg of aspirin in it. Patient states that she was taking this daily. Her son tells me that she was having bloody output from her ostomy prior to her last admission. She had an EGD performed on 07/18/2023 that showed erythema in the stomach. Small
hiatal hernia. Nonbleeding duodenal ulcer with no stigmata of bleeding with stenosis. The lesion was 10 millimeters in largest dimension. This was stenotic and unable to be passed with EGD scope. The patient did sign herself out AMA on 07/18/2023
at 8 PM. Since that time she has had multiple episodes of nausea and vomiting with inability to tolerate much oral intake. Only liquids at times. She was down titrated on her pain medication regimen. Fentanyl patches were stopped. Only continued
on morphine pills and oxycodone pills. She states she went through withdrawal. She resumed her fentanyl patches. She states abdominal pain improved and she stopped going through withdrawal. However still not able to tolerate any oral intake. 5
episodes of vomiting this morning. Unable to tolerate PPI use. Not taking Carafate. Still smoking although decreased. Stopped NSAIDs (ASA 250 mg) on 07/18/2023. WBC 15.7, hemoglobin 14.6, hematocrit 44.0, platelet count 375, sodium 139, potassium
4.4, chloride 99, CO2 32, BUN 30, creatinine 0.7, glucose 108, total bilirubin 0.3, AST 35, ALT 37, alk phos 116, lipase 85
Impression:
Duodenal ulcer with stenosis
Persistent nausea and vomiting with inability to maintain hydration
Protein calorie malnutrition BMI 16.5
Plan:
-Pantoprazole 40 mg IV BID
-Carafate suspension QID
-IVF
-Will need eventual UGI if she can tolerate contrast
-Zofran 4 mg IV q 6 hr prn
-
-
Thank you for consultation and allowing me to participate in the patient's care. Please call the therapeutic recreation director GI physician during the after hours with any questions or concerns.
--- NOTE | 2023-07-26 16:40 | HPS.HSE ---
Family Physician
-
Family Physician: NOT KNOW UNKNOWN - PT DOES
Chief Complaint
-
Intractable vomiting, abdominal pain
History of Present Illness
62-year-old female with known duodenal ulcer with ulcer associated stenosis here with complaints of ongoing abdominal pain and inability to tolerate oral intake. Persistent vomiting.
Recently hospitalized and discharged AGAINST MEDICAL ADVICE on July 17. Was here at the time for evaluation of abdominal pain. EGD on July 17 showed nonbleeding duodenal ulcer with ulcer associated stenosis. Path report consistent with active
duodenitis with focal ulceration. No H. pylori organisms noted.
Apparently also was taking Excedrin migraine medicine for her pain prior to last admission.
Patient states she is unable to tolerate proton pump inhibitors due to bloating. Has not been on any acid suppression at home other than Carafate.
Last ate 2 days ago. Admits to 50 pound weight loss over the past 5 years.
History of chronic pain syndrome, opiate dependence.
Medical History
Past Medical History
Past Medical History: Reports Other
Additional Past Medical History:
Duodenal ulcer with stenosis
Tobacco dependence
Chronic pain syndrome, chronic opiate dependence
Essential hypertension
Fibromyalgia
Asthma
Severe protein calorie malnutrition
Past Surgical History: Reports Appendectomy and Other
Additional Past Surgical History:
Partial colectomy, colostomy
Bilateral knee replacement
Social History
Tobacco: Smoker
Alcohol: None
Drug: None
Family History
Family History: Not pertinent
Allergies / Home Medications
Allergies reflects when Allergies were last updated in [facility].
Home Medications with original date entered in [facility]
Allergy/Medication List:
Allergies
Allergy/AdvReac Type Severity Reaction Status Date / Time
Cephalosporins Allergy Unknown Verified 07/26/23 13:14
clotrimazole Allergy Unknown Verified 07/26/23 13:14
nystatin Allergy Unknown Verified 07/26/23 13:14
Penicillins Allergy Unknown Verified 07/26/23 13:14
Tetracyclines Allergy Unknown Verified 07/26/23 13:14
triamcinolone Allergy Unknown Verified 07/26/23 13:14
Home Medications
cyclobenzaprine 10 mg tablet 10 mg PO DAILYPRN PRN muscle spasm 11/07/18
milnacipran 100 mg tablet (Savella) 100 mg PO DAILY@0000 fibromyalgia 11/07/18
clonidine 0.3 mg/24 hr weekly transdermal patch 1 patch transdermal QWEEK Blood Pressure 02/08/23
metoprolol succinate 200 mg tablet,extended release 24 hr 100 mg PO DAILY@0000 Blood Pressure 02/08/23
oxycodone 20 mg tablet 20 mg PO Q8HPRN PRN mild withdrawal 02/08/23
polyethylene glycol 3350 17 gram oral powder packet (Miralax) 17 g PO DAILYPRN PRN constipation 02/08/23
therapeutic multivitamin 1 tab PO HS supplement 02/08/23
fentanyl 100 mcg/hr transdermal patch 2 patch transdermal Q72H 07/16/23
simethicone 80 mg chewable tablet 80 mg PO QIDPRN PRN gas pain 07/16/23
diphenhydramine HCl 25 mg capsule (Benadryl) 25 mg PO HSPRN PRN sleep 07/26/23
nicotine 21 mg/24 hr daily transdermal patch 1 patch transdermal DAILY 07/26/23
sucralfate 1 gram tablet 1 g PO BID 07/26/23
Review of Systems
-
History Source: Patient
A 12 point ROS was completed and negative except as noted: Yes
Constitutional: Reports Weight Loss
Abdomen/GI: Reports Abdominal Pain and Vomiting
Physical Exam
Vital Signs
Vital Signs
Temp Pulse Resp BP Pulse Ox
97.8 F 102 20 103/63 97
07/26/23 13:12 07/26/23 13:12 07/26/23 13:12 07/26/23 15:00 07/26/23 15:30
Physical Exam
General: No Apparent Distress and Appears Chronically Ill
HEENT: NormoCephalic, Anicteric and Moist mucous membranes
Respiratory: Clear
Cardiac: S1/S2 and Regular Rhythm
GI: Soft, Non Tender, Non Distended and Ostomy
Genito-urinary: Deferred by me
Musculoskeletal: No Clubbing, No Cyanosis and No Edema
Skin: Warm and Dry
Neuro: AO x 3
Hematologic/Lymphatic: No Lymphadenopathy
Psych: Calm
Laboratory Results
-
07/26/23 13:51
07/26/23 13:51
Laboratory Results
Total Bilirubin 0.3 mg/dl (0.2-1.3) 07/26/23 13:51
AST 35 U/L (14-36) 07/26/23 13:51
ALT 37 U/L (0-35) H 07/26/23 13:51
Alkaline Phosphatase 116 U/L (38-126) 07/26/23 13:51
Lipase 85 U/L (23-300) 07/26/23 13:51
Impression/Plan
-
Intractable vomiting - suspect multifactorial etiology including duodenal stenosis related to known duodenal ulcer, chronic opioid use, etc.
Admit to [facility]. Consult gastroenterology, known to Dr. Pryor. Case discussed with her on the phone. Will need upper GI series with contrast.
Clear liquid diet, antiemetics. Protonix drip.
Duodenal ulcer - no evidence of bleeding clinically. Hemoglobin is normal. She denies melena or hematochezia. She is not on proton pump inhibitor at home due to complaints of bloating. I suspect most of her bloating is probably related to the
duodenal stenosis rather than a side effect of proton pump inhibitor therapy.
Chronic pain syndrome/chronic opiate dependence - she is on 200 mcg of fentanyl patch every 48 hours, although it is prescribed every 72 hours. Oxycodone 20 mg every 8 hours as needed for breakthrough. Cyclobenzaprine 10 mg daily as needed.
Recently prescribed MS Contin 200 mg tablets but she could not tolerate and went into opiate withdrawal due to her nausea and vomiting. She is back on her fentanyl patch now with adequate pain control. She states she was up to 400 mcg of fentanyl
patch in the past.
Essential hypertension -stable.
Mild intermittent asthma
Fibromyalgia
Severe protein calorie malnutrition
Tobacco dependence
Full code
Family updated at the bedside.
[2023-07-26] MEDS: DURAGESIC 100 MCG/HR PATCH 2 PATCH TRANSDERM (18:04)
[2023-07-26] MEDS: PROTONIX 100 IV (18:05)
[2023-07-26] MEDS: 0.45%NACL 1000 IV (18:05)
[2023-07-26] MEDS: HEPARIN 5000 UNITS SC (19:44)
[2023-07-26] MEDS: CARAFATE 1 GRAM PO (19:44)
[2023-07-26] MEDS: ROXICODONE 20 MG PO (19:45)
[2023-07-26] MEDS: THERAGRAN 1 TABLET PO (21:07)
[2023-07-27] MEDS: PROTONIX 100 IV ×2 (04:25→19:53)
[2023-07-27] MEDS: 0.45%NACL 1000 IV (06:00)
[2023-07-27] MEDS: FLEXERIL 10 MG PO (06:06)
[2023-07-27 07:00] VITALS: BP 94/60
[2023-07-27] MEDS: CARAFATE 1 GRAM PO ×2 (07:56→19:53)
[2023-07-27] MEDS: NICODERM TRANSDERMAL 21 MG TRANSDERM (07:56)
[2023-07-27] MEDS: HEPARIN 5000 UNITS SC ×2 (07:57→19:53)
[2023-07-27 10:23] LABS: Hepatitis C Antibody Negative (Negative)
--- NOTE | 2023-07-27 12:12 | W.PN.HOSP.TC ---
Today's Communication/Plan
-
Follow-up upper GI series
Assessment / Plan
Assessment / Plan
Gen-alert, awake, NAD, cachectic
HEENT-NC, AT, anicteric, clear oral mm
Neck-supple
CV-reg, no M, +S1/S2
Lungs-clear B/L
Abd-soft, NT, ND
Ext-no edema
Musculoskeletal-no cyanosis, clubbing
Skin-warm and dry
Neuro-grossly non-focal
Psych-calm, cooperative
Intractable vomiting - suspect multifactorial etiology including duodenal stenosis related to known duodenal ulcer, chronic opioid use, etc. clear liquid diet. Await upper GI series today. Gastroenterology consulted.
Duodenal ulcer - no evidence of bleeding clinically. Hemoglobin is normal. She denies melena or hematochezia. She is not on proton pump inhibitor at home due to complaints of bloating. I suspect most of her bloating is probably related to the
duodenal stenosis rather than a side effect of proton pump inhibitor therapy.
Continue IV Protonix.
Chronic pain syndrome/chronic opiate dependence - she is on 200 mcg of fentanyl patch every 48 hours, although it is prescribed every 72 hours. Oxycodone 20 mg every 8 hours as needed for breakthrough. Cyclobenzaprine 10 mg daily as needed.
Recently prescribed MS Contin 200 mg tablets but she could not tolerate and went into opiate withdrawal due to her nausea and vomiting. She is back on her fentanyl patch now with adequate pain control. She states she was up to 400 mcg of fentanyl
patch in the past.
Essential hypertension -stable.
Mild intermittent asthma -stable.
Fibromyalgia
Severe protein calorie malnutrition
Tobacco dependence
Full code
Anticipated Discharge: > 48 hours
Subjective/Interval History
-
Date of Service: July 27, 2023
Patient seen and examined. No new complaints.
Objective Data
-
Vital Signs:
Vital Signs
Temp Pulse Resp BP Pulse Ox
97.3 F 73 16 94/60 94
07/27/23 07:00 07/27/23 07:00 07/27/23 07:00 07/27/23 07:00 07/27/23 07:00
I&O
07/26/23 07/27/23 07/28/23
06:59 06:59 06:59
Intake Total 1200 / 1200
Balance 1200 / 1200
Review of Systems
-
History Source: Patient
All other systems: Reviewed and negative
--- NOTE | 2023-07-27 13:13 | PN.CDI ---
CDI
- -
CDI:
Physician Documentation Request
Admit Date: 07/26/23 16:45
Dear Katelyn CHIANG,
Patient admitted with vomiting and abdominal pain.
ED note, 'Patient states she was sent to the ED by Dr. Pryor for admission for treatment of duodenal ulcer. She was seen in ED last week and admitted for pain. Endoscopy confirmed ulcers however she signed herself out AMA on Tuesday....Today she
states she vomited 5 times this AM.
07/25 GI consult, ' She had an EGD performed on 07/18/2023 that showed erythema in the stomach. Small hiatal hernia. Nonbleeding duodenal ulcer...'
Please clarify which of the following accurately represents the acuity of the duodenal ulcer:
Acute
Acute on chronic
Chronic
Other
Use of terms such as suspected, likely, concern for, or probable (associated with a specific diagnosis that is being evaluated, monitored, or treated as if it exists) are acceptable and can be coded in the inpatient setting, when documented at the
time of discharge.
Thank you,
Terri DOBSON,RN,CCCDS
CDI Specialist
Available via [place] text
Please use your independent medical judgment in providing your response.
[2023-07-27 13:22] VITALS: BMI 16.5
[2023-07-27] MEDS: ZOFRAN 4 MG IV (14:08)
[2023-07-27 15:00] VITALS: BP 94/58
--- NOTE | 2023-07-27 16:03 | W.PN.GI.CBS2 ---
Addendum entered and electronically signed by Mago Pryor DO 07/27/23 19:43:
Patient seen and examined independently of [employer]. I agree with her note with my additions below
Patient is tolerating clear liquid diet
Tolerating the IV PPI drip without issue
I reviewed the upper GI series which shows a severe stricture in the duodenum
Review of the read shows severe stricture greater than 70% diameter in the proximal duodenum mild scarring and mucosal irregularity in the greater curvature of the gastric antrum and a mild esophageal motility disorder.
Continue PPI drip, Carafate 3 times daily, nutrition consult for liquid nutrition
Surgical consult -unfortunately peptic stricturing disease cannot be stented -patient may require gastrojejunostomy versus J-tube if cannot keep up with oral liquid intake
Avoid all NSAIDs
Attempt to decrease narcotics as this is not helping with overall motility
MiraLAX to help with constipation, especially within the parastomal hernia
Discussed with patient and daughter at bedside
Original Note:
Today's Communication / Plan
-
Full liquid diet. Await upper GI study report. Continue PPI drip. Consider trial of a Voquenza. Avoid NSAIDs completely.
Assessment / Plan
-
The pt is a 62 year old female with a past medical history significant for asthma/COPD, chronic pain syndrome on high doses of chronic opiates, fibromyalgia, tobacco use, h/o prior bowel obstruction with partial colectomy and colostomy (2013) who
opted not to have reversal, parastomal hernia, and duodenal ulcers who complains of worsening upper abdominal pain. Upon review of records, she was initally admitted to in January 2023 with similar symptoms and was found to have severe gastritis
and multiple non-bleeding duodenal ulcers. She has had noncompliance with PPI therapy due to significant bloating therefore has not been taking it and these ulcers ultimately have not been able to heal. She has had symptoms both with omeprazole and
pantoprazole. She had recurrent hospitalization in July with recurrent symptoms. She had been taking NSAIDs as well at that time. She had an EGD performed on 07/18/2023 that showed erythema in the stomach. Small hiatal hernia. Nonbleeding duodenal
ulcer with no stigmata of bleeding with stenosis. The lesion was 10 millimeters in largest dimension. This was stenotic and unable to be passed with EGD scope. The patient did sign herself out AMA on 07/18/2023 at 8 PM. She presents again with
recurrent symptoms of nausea and vomiting unable to tolerate much oral intake. She is only been able to drink liquids such as Gatorade. She again declined oral PPI therapy but has been placed on a PPI drip which she has been tolerating. She does
take large amounts of narcotics including fentanyl patch, oral oxycodone and high-dose, although her fentanyl patches had been stopped and she was only continued on morphine and oxycodone but she had resumed her leftover patches. On admission her
labs showed: WBC 15.7, hemoglobin 14.6, hematocrit 44.0, platelet count 375, sodium 139, potassium 4.4, chloride 99, CO2 32, BUN 30, creatinine 0.7, glucose 108, total bilirubin 0.3, AST 35, ALT 37, alk phos 116, lipase 85. She was made n.p.o. and a
upper GI series with small bowel follow-through was ordered which was completed this morning and is pending. She reports she is tolerating small yessenia of Gatorade currently. She does have some residual nausea without vomiting.
Problem list:
-Recurrent duodenal ulcer with stenosis secondary to noncompliance with PPI
-Abdominal bloating/pain
-Persistent nausea/vomiting
-Protein calorie malnutrition with a BMI of 16.5
-Leukocytosis, appears chronic
-Large parastomal hernia
-History of bowel obstruction with partial colectomy and colostomy placement in 2013
-Chronic narcotic use
-Current cigarette smoker
Other medical problems:
-Asthma/COPD
-Fibromyalgia
-Hypertension
Recommendations:
-Will await official read of the upper GI series with small bowel follow-through although images reviewed with Dr. Pryor do appear to have ongoing stenosis
-We did have a discussion with the patient at the bedside and advised that if she is unable to treat the ulcers she may need surgical intervention although she is a poor candidate given her poor nutrition and smoking status as this would affect her
healing
-Okay for full liquid diet, if she has recurrent vomiting would make n.p.o.
-Continue PPI drip for now, to consider Voquenza as this is a different class of PPI and she may be able to tolerate this. Will try to bring her samples from the office
-She should avoid NSAIDs completely
-PRN antiemetics
-Consider adding MiraLax pending UGI
-Continue IV fluids as per hospitalist
-To consider inpatient surgical eval. They also asked about surgery options for her parastomal hernia
-Her daughter is concerned she may have had a stroke a month ago as she had some left sided facial drooping. I do not appreciate this while talking to her and she is moving her left arm normally otherwise. Dr. Pryor to message the hospitalist.
-Further plan pending above
Subjective
Subjective
Date of Service: July 27, 2023
The patient was seen and examined at the bedside with Dr. Pryor. She denies any significant pain currently but will still have intermittent discomfort of the right upper quadrant. This pain radiates into her back at times. She does feel mildly
nauseous but feels this is due to the barium from the upper GI that she had her done earlier today. These results are still pending. She has a very large left lower quadrant parastomal hernia. She did not have much output from her ostomy today
but there is no obvious blood. She is tolerating Gatorade at this time.
Objective
Data Reviewed
Laboratory Data:
Laboratory Results
07/26/23 13:51
07/26/23 13:51
Laboratory Results
Total Bilirubin 0.3 mg/dl (0.2-1.3) 07/26/23 13:51
AST 35 U/L (14-36) 07/26/23 13:51
ALT 37 U/L (0-35) H 07/26/23 13:51
Alkaline Phosphatase 116 U/L (38-126) 07/26/23 13:51
Lipase 85 U/L (23-300) 07/26/23 13:51
Vital Signs and I&O:
Vital Signs
Temp Pulse Resp BP Pulse Ox
98.2 F 82 18 94/58 92
07/27/23 15:00 07/27/23 15:00 07/27/23 15:00 07/27/23 15:00 07/27/23 15:00
I&O
07/26/23 07/27/23 07/28/23
06:59 06:59 06:59
Intake Total 1200 / 1200
Balance 1200 / 1200
Physical Exam
Physical Exam
HEENT: Anicteric
Cardiology: S1 and S2 (Regular rate/rhythm )
Pulmonary: Other (diminished breath sounds)
GI: Soft, Tender (minimally tender RUQ), Non Tender and Other (hypoactive bowel sounds, large LLQ parastomal hernia, ostomy site pink with minimal brown liquid)
Extremities: No Edema
--- NOTE | 2023-07-27 16:47 | CM ---
Alert awake oriented patient who lives with her son Ced and ricardo in a townhouse with 0 steps to enter and 15 steps to bed and bathroom. She is independent in driving and in all activities of daily living.She was offered VN she declined need.Pt given
Advanced Directives.
[place] [facility] hx / No SNF history
Pharmacy [facility]
PCP DR Ribeiro
PLAN Home Declined VN
[2023-07-27] MEDS: THERAGRAN 1 TABLET PO (19:53)
[2023-07-27] MEDS: PROTONIX IV (20:19)
[2023-07-27 23:50] VITALS: BP 113/74
[2023-07-27] MEDS: NON-FORMULARY ITEM 1 UNIT PO (23:56)
[2023-07-28 05:41] LABS: % Basophils 0.3 % (0-2); % Eosinophils 2.3 % (0-6); % Immature Granulocytes 0.2 % (0-0.5); % Lymphocytes 22.4 % (20.5-51.1); % Monocytes 7.9 % (1.7-9.3); % Neutrophils 66.9 % (42.2-75.2); Absolute Eosinophils 0.2 10^3/uL (0-0.7); Absolute Monocytes 0.7 10^3/uL (0.1-0.6); Absolute Neutrophils 5.9 10^3/uL (1.4-6.5); Hematocrit 35.3 % (37.0-47.0); Mean Corpuscular Hgb 34.6 pg (27.0-31.0); Mean Corpuscular Volume 101.7 fL (81.0-99.0); Mean Platelet Volume 9.7 fL (7.4-10.4); Nucleated Red Blood Cells % 0 %; Platelet Count 241 10^3/uL (130-400); Red Blood Cell Count 3.47 10^6/uL (4.20-5.40); Red Cell Dist. Width 11.5 % (11.5-14.5); White Blood Cell Count 8.8 10^3/uL (4.8-10.8)
[2023-07-28 06:11] LABS: ALT (SGPT) 28 U/L (0-35); AST (SGOT) 24 U/L (14-36); Albumin 3.2 g/dl (3.5-5.0); Alkaline Phosphatase 105 U/L (38-126); Blood Urea Nitrogen 13 mg/dl (7-17); Calcium 9.3 mg/dl (8.4-10.2); Carbon Dioxide 31 mmol/L (22-30); Chloride 104 mmol/L (98-107); Estimated Creatinine Clearance 71 ml/min; Glucose 89 mg/dl (70-99); Magnesium 2.1 mg/dl (1.6-2.3); Phosphorus 4.1 mg/dl (2.5-4.5); Potassium 4.3 mmol/L (3.5-5.1); Sodium 140 mmol/L (135-145); Total Bilirubin 0.3 mg/dl (0.2-1.3); Total Protein 5.5 g/dl (6.3-8.2); eGFR > 60.00
[2023-07-28] MEDS: HEPARIN 5000 UNITS SC ×2 (07:19→20:18)
[2023-07-28] MEDS: NICODERM TRANSDERMAL 21 MG TRANSDERM (07:19)
[2023-07-28] MEDS: CARAFATE 1 GRAM PO ×2 (07:19→20:18)
[2023-07-28] MEDS: PROTONIX 100 IV ×2 (07:20→18:40)
[2023-07-28 07:42] VITALS: BP 101/60
--- NOTE | 2023-07-28 12:18 | W.PN.HOSP.TC ---
Today's Communication/Plan
-
General surgery consult
Assessment / Plan
Assessment / Plan
Gen-alert, awake, NAD, cachectic
HEENT-NC, AT, anicteric, clear oral mm
Neck-supple
CV-reg, no M, +S1/S2
Lungs-clear B/L
Abd-soft, NT, ND
Ext-no edema
Musculoskeletal-no cyanosis, clubbing
Skin-warm and dry
Neuro-grossly non-focal
Psych-calm, cooperative
Intractable vomiting - suspect multifactorial etiology including duodenal stenosis related to known duodenal ulcer, chronic opioid use, etc. clear liquid diet. Upper GI series shows severe stricture in the proximal duodenum. General surgery
consulted for consideration of gastrojejunostomy tube vs J-tube.
Duodenal ulcer - no evidence of bleeding clinically. Hemoglobin is normal. She denies melena or hematochezia. She is not on proton pump inhibitor at home due to complaints of bloating. I suspect most of her bloating is probably related to the
duodenal stenosis rather than a side effect of proton pump inhibitor therapy.
Continue IV Protonix.
Chronic pain syndrome/chronic opiate dependence - she is on 200 mcg of fentanyl patch every 48 hours, although it is prescribed every 72 hours. Oxycodone 20 mg every 8 hours as needed for breakthrough. Cyclobenzaprine 10 mg daily as needed.
Recently prescribed MS Contin 200 mg tablets but she could not tolerate and went into opiate withdrawal due to her nausea and vomiting. She is back on her fentanyl patch now with adequate pain control. She states she was up to 400 mcg of fentanyl
patch in the past.
Essential hypertension -stable.
Mild intermittent asthma -stable.
Fibromyalgia
Severe protein calorie malnutrition
Tobacco dependence
Full code
Anticipated Discharge: > 48 hours
Subjective/Interval History
-
Date of Service: July 28, 2023
Patient seen and examined. Tolerating full liquid diet so far. Complaining of gas.
Objective Data
-
Labs:
Laboratory Results
07/28/23
05:22
WBC 8.8
Hgb 12.0
Hct 35.3 L
Plt Count 241 D
Sodium 140
Potassium 4.3
Chloride 104
Carbon Dioxide 31 H
BUN 13
Creatinine 0.6
Glucose 89
Calcium 9.3
Total Bilirubin 0.3
AST 24
ALT 28
Alkaline Phosphatase 105
Vital Signs:
Vital Signs
Temp Pulse Resp BP Pulse Ox
98.4 F 79 16 101/60 89
07/28/23 07:42 07/28/23 07:42 07/28/23 07:42 07/28/23 07:42 07/28/23 07:42
I&O
07/27/23 07/28/23 07/29/23
06:59 06:59 06:59
Intake Total 1200 / 1200 1800 / 1800
Balance 1200 / 1200 1800 / 1800
Review of Systems
-
History Source: Patient
All other systems: Reviewed and negative
[2023-07-28] MEDS: ROXICODONE 20 MG PO (13:51)
--- NOTE | 2023-07-28 15:23 | W.PN.GI.CBS2 ---
Addendum entered and electronically signed by Mago Pryor DO 07/28/23 19:11:
Patient seen and examined independently of [employer]UR[employer]IC[employer]. I agree with her note with my additions below
Patient is a 62-year-old female who I know well. Her abdominal pain and symptoms are back to baseline. She is tolerating a full liquid diet and we have advanced her to pur�es which is probably can to be the most advance diet she will be able to
tolerate considering the duodenal stenosis. I am hopeful she will continue with high-dose PPI/H2 reyes/Carafate and get some improvement in healing. I do appreciate Dr. Mcelroy coming to see her about her two issues and completely understand and
agree that surgery would not be a great option for her.
Will try to maximize her medical therapy and potentially could undergo endoscopic dilation with Dr. Jane after some of the edema improves
Appreciate nutrition recommendations to help maximize her calorie intake with more of a liquid/pur�ed diet
Continue smoking cessation, avoiding NSAIDs, avoid constipation and keep stools soft especially due to the parastomal hernia with the help of daily MiraLAX
I did give her some samples of Voquenza to see if she can tolerate this type of acid medication which I am sure will require precertification outpatient. Continue the PPI drip even with the oral medications while she is here but when she gets
discharged she would just stay on Voquenza/pepcid BID/carafate BID as well as pay attention to no NSAID use and smoking cessation
Okay to use simethicone as needed, also with likely gastroparesis from narcotics which is not helping
Possible discharge tomorrow
Original Note:
Today's Communication / Plan
-
UGI as noted with severe stricture
tolerating full liquids--will trial pureed with ensure but may be only oral diet she can tolerate
cont Protonix gtt and add Voquenza -- to see if she can tolerate. She will require precert if helping
limit narcotics
add miralax to keep stools soft
ok for mylicon PRN
stressed NSAID avoids and limits with Tylenol use
await surgical eval for severe stenosis to consider J tube and eval for parastomal hernia -- pt reports periods of enlargement at times
Assessment / Plan
-
The pt is a 62 year old female with a past medical history significant for asthma/COPD, chronic pain syndrome on high doses of chronic opiates, fibromyalgia, tobacco use, h/o prior bowel obstruction with partial colectomy and colostomy (2013) who
opted not to have reversal, parastomal hernia, and duodenal ulcers who complains of worsening upper abdominal pain. Upon review of records, she was initially admitted to in January 2023 with similar symptoms and was found to have severe
gastritis and multiple non-bleeding duodenal ulcers. She has had noncompliance with PPI therapy due to significant bloating therefore has not been taking it and these ulcers ultimately have not been able to heal. She has had symptoms both with
omeprazole and pantoprazole. She had recurrent hospitalization in July with recurrent symptoms. She had been taking NSAIDs as well at that time. She had an EGD performed on 07/18/2023 that showed erythema in the stomach. Small hiatal hernia.
Nonbleeding duodenal ulcer with no stigmata of bleeding with stenosis. The lesion was 10 millimeters in largest dimension. This was stenotic and unable to be passed with EGD scope. The patient did sign herself out AMA on 07/18/2023 at 8 PM. She
presents again with recurrent symptoms of nausea and vomiting unable to tolerate much oral intake. She is only been able to drink liquids such as Gatorade. She again declined oral PPI therapy but has been placed on a PPI drip which she has been
tolerating. She does take large amounts of narcotics including fentanyl patch, oral oxycodone and high-dose, although her fentanyl patches had been stopped and she was only continued on morphine and oxycodone but she had resumed her leftover
patches. On admission her labs showed: WBC 15.7, hemoglobin 14.6, hematocrit 44.0, platelet count 375, sodium 139, potassium 4.4, chloride 99, CO2 32, BUN 30, creatinine 0.7, glucose 108, total bilirubin 0.3, AST 35, ALT 37, alk phos 116, lipase 85.
She was made n.p.o. and a upper GI series with small bowel follow-through was ordered which was completed this morning and is pending. She reports she is tolerating small yessenia of Gatorade currently. She does have some residual nausea without
vomiting.
07/26- UGI
1. SEVERE STRICTURE (greater than 70% diameter) in the PROXIMAL DUODENUM. Diagnostic possibilities are (1) a benign stricture secondary to peptic ulcer disease and duodenitis or (2) adenocarcinoma.
2. Mild scarring and mucosal irregularity in the greater curvature of the gastric antrum.
3. Mild esophageal motility disorder.
Problem list:
-Recurrent duodenal ulcer with stenosis secondary to noncompliance with PPI
-Abdominal bloating/pain
-Persistent nausea/vomiting
-Protein calorie malnutrition with a BMI of 16.5/wt loss
-Leukocytosis, appears chronic
-Large parastomal hernia
-History of bowel obstruction with partial colectomy and colostomy placement in 2013
-Chronic narcotic use
-Current cigarette smoker
Other medical problems:
-Asthma/COPD
-Fibromyalgia
-Hypertension
Recommendations:
UGI as noted with severe stricture
tolerating full liquids--will trial pureed with ensure but may be only oral diet she can tolerate
cont Protonix gtt and add Voquenza -- to see if she can tolerate. She will require precert if helping
limit narcotics
add miralax to keep stools soft
ok for mylicon PRN
stressed NSAID avoids and limits with Tylenol use
await surgical eval for severe stenosis to consider J tube and eval for parastomal hernia -- pt reports periods of enlargement at times
Subjective
Subjective
Date of Service: July 28, 2023
full liquid diet, no stools still with pain but tolerating diet + liquid stool in ostomy bag
Objective
Data Reviewed
Laboratory Data:
Laboratory Results
07/28/23 05:22
07/28/23 05:22
Laboratory Results
Phosphorus 4.1 mg/dl (2.5-4.5) 07/28/23 05:22
Magnesium 2.1 mg/dl (1.6-2.3) 07/28/23 05:22
Total Bilirubin 0.3 mg/dl (0.2-1.3) 07/28/23 05:22
AST 24 U/L (14-36) 07/28/23 05:22
ALT 28 U/L (0-35) 07/28/23 05:22
Alkaline Phosphatase 105 U/L (38-126) 07/28/23 05:22
Lipase 85 U/L (23-300) 07/26/23 13:51
Vital Signs and I&O:
Vital Signs
Temp Pulse Resp BP Pulse Ox
98.4 F 79 16 101/60 89
07/28/23 07:42 07/28/23 07:42 07/28/23 07:42 07/28/23 07:42 07/28/23 07:42
I&O
07/27/23 07/28/23 07/29/23
06:59 06:59 06:59
Intake Total 1200 / 1200 1800 / 1800
Balance 1200 / 1200 1800 / 1800
Physical Exam
Physical Exam
HEENT: Anicteric and Moist mucous membranes
Cardiology: Normal Sinus Rhythm
Pulmonary: Clear
GI: Soft, Non Distended and Tender (mild with some minimal chronic tenderness with swelling around ostomy with herniation)
Extremities: No Edema
Neuro: Non Focal
--- NOTE | 2023-07-28 15:44 | CM ---
CM reviewed chart, general surgery consulted. Patient previously offered VN, declined. CM will continue to follow for discharge planning needs.
Plan; home no needs, watch for VN needs.
[2023-07-28] MEDS: NON-FORMULARY ITEM 20 MG PO (16:18)
[2023-07-28] MEDS: MIRALAX 17 GRAMS PO (16:19)
[2023-07-28] MEDS: FLEXERIL 10 MG PO (16:21)
[2023-07-28 16:28] VITALS: BP 115/75
--- NOTE | 2023-07-28 17:07 | CON.GS ---
Consultation
-
Reason for Consultation: Peptic stricture/refractory duodenal ulcer, parastomal hernia
Medical History
-
Chief Complaint: Intermittent nausea vomiting
History of Present Illness:
Patient is a 62-year-old female recently known to our GI service after hospitalization this past January when she was admitted with epigastric abdominal pain, nausea vomiting. She underwent an upper endoscopy identifying severe gastritis, multiple
nonbleeding duodenal ulcers with moderate stenosis. She unfortunately continued with tobacco use and stated that she did not tolerate her PPI due to bloating and gas issues.
She returned and was admitted to the hospital 2 weeks ago with recurrent abdominal pain nausea and vomiting and at that time she was also taking Excedrin Migraine. She is also noted to have some bloody output from her ostomy. EGD was repeated on
07/18/2023 identifying erythematous stomach, small hiatal hernia, 10 mm duodenal ulcer and duodenal stenosis to the point that the upper endoscopy scope was unable to be passed through it. She signed her son out AMA abruptly after this procedure.
Her medical history is notable for asthma/COPD, chronic pain syndrome on chronic opiates, fibromyalgia, tobacco use (she states that she has not utilized tobacco since her most recent hospitalization over the past 10 days to 2 weeks), duodenal
ulcers. She had exploratory laparotomy in 2013 for perforated colon which she states was related to mesh adhesions from a bladder sling. This required 3 laparotomies and a 2-month hospitalization with subsequent end colostomy that she has kept
since as she has not wish to pursue reversal.
At current evaluation patient states that she is feeling back to her baseline. She denies any abdominal pain at the moment. She is tolerating a liquid diet with some belching and fullness. Her ostomy is functional but slow and often constipated
with firm stool. She is tolerating full liquids.
Past Medical History
Past Medical History: Other (Asthma, COPD, fibromyalgia, chronic pain syndrome with high-dose chronic narcotics, tobacco use, end colostomy with large parastomal hernia, peptic ulcer disease)
Past Surgical History: Appendectomy, Bowel Resection (End colostomy/Debra) and Gynecological
Social History
Tobacco: Smoker
Alcohol: None
Drug: None
Personal:
Living: With Family
Family History
Family History: Reviewed & Not Pertinent
Allergies / Home Medications
Allergy/AdvReac Type Severity Reaction Status Date / Time
Cephalosporins Allergy Unknown Verified 07/26/23 17:33
clotrimazole Allergy Unknown Verified 07/26/23 17:33
nystatin Allergy Unknown Verified 07/26/23 17:33
Penicillins Allergy Unknown Verified 07/26/23 17:33
Tetracyclines Allergy Unknown Verified 07/26/23 17:33
triamcinolone Allergy Unknown Verified 07/26/23 17:33
�Medication �Instructions �Recorded �Confirmed �Type
cyclobenzaprine 10 mg tablet 10 mg PO DAILYPRN PRN muscle spasm 11/07/18 07/26/23 History
milnacipran 100 mg tablet (Savella) 100 mg PO DAILY@0000 fibromyalgia 11/07/18 07/26/23 History
clonidine 0.3 mg/24 hr weekly 1 patch transdermal QWEEK Blood 02/08/23 07/26/23 History
transdermal patch Pressure
metoprolol succinate 200 mg 100 mg PO DAILY@0000 Blood Pressure 02/08/23 07/26/23 History
tablet,extended release 24 hr
oxycodone 20 mg tablet 20 mg PO Q8HPRN PRN mild withdrawal 02/08/23 07/26/23 History
polyethylene glycol 3350 17 gram 17 g PO DAILYPRN PRN constipation 02/08/23 07/26/23 History
oral powder packet (Miralax)
therapeutic multivitamin 1 tab PO HS supplement 02/08/23 07/26/23 History
fentanyl 100 mcg/hr transdermal 2 patch transdermal Q72H Pain 07/16/23 07/26/23 History
patch
simethicone 80 mg chewable tablet 80 mg PO QIDPRN PRN gas pain 07/16/23 07/26/23 History
diphenhydramine HCl 25 mg capsule 25 mg PO HSPRN PRN sleep 07/26/23 07/26/23 History
(Benadryl)
nicotine 21 mg/24 hr daily 1 patch transdermal DAILY Nicotine 07/26/23 07/26/23 History
transdermal patch replacement
sucralfate 1 gram tablet 1 g PO BID Gastrointestinal Issue 07/26/23 07/26/23 History
Review of Systems
-
History Source: Patient
All other systems: Negative unless noted
A 10 point review of systems was completed, and was negative except as per HPI.
Physical Exam
Vital Signs
Temp Pulse Resp BP Pulse Ox
98.5 F 88 16 115/75 93
07/28/23 16:28 07/28/23 16:28 07/28/23 16:28 07/28/23 16:28 07/28/23 16:28
07/27/23 07/28/23 07/29/23
06:59 06:59 06:59
Actual Weight 46.351 kg
Body Mass Index (BMI) 16.5
Lab Results
07/28/23 05:22
07/28/23 05:22
WBC 8.8 10^3/uL (4.8-10.8) 07/28/23 05:22
Hgb 12.0 g/dL (12.0-16.0) 07/28/23 05:22
Hct 35.3 % (37.0-47.0) L 07/28/23 05:22
Plt Count 241 10^3/uL (130-400) D 07/28/23 05:22
Abs Immat Gran (auto) 0.0 10^3/uL (0-0.05) 07/28/23 05:22
Neutrophils % 66.9 % (42.2-75.2) 07/28/23 05:22
Physical Exam
General: Well Developed, No Apparent Distress, Comfortable and Other (Thin/cachectic)
HEENT: Normocephalic, Anicteric and Moist Mucous Membranes
Respiratory: Non Labored Respirations
Cardiac: Regular Rhythm
GI: Soft, Non Tender, Non Distended and Other (Left-sided end colostomy with partially reducible parastomal hernia. No tenderness)
Neuro: AO x 3
Psych: Calm
Data Reviewed
-
Radiology: Image Personally Visualized and interpreted
CT Scan: Image Personally Visualized and interpreted
Labs: Labs Reviewed by me
Old Records: Reviewed
Assessment / Plan
-
Assessment: 62-year-old female with peptic stricture of the duodenum secondary to duodenal ulcer disease in setting of medical noncompliance with PPI use due to reported side effects, ongoing tobacco use (patient states she stopped smoking 10 days
ago-essentially her last hospitalization) with resultant partial gastric outlet obstruction.
She also has a large parastomal hernia which is reducible and chronic constipation.
Lengthy discussions with patient regarding her medical history and management options for duodenal stricture/peptic ulcer disease, parastomal hernia and colostomy. We discussed both operative, endoscopic and nonoperative management options.
Patient appears to have a good understanding of her underlying illness and medical noncompliance contributing to current progression of ulcer disease. She also states that she is satisfied with her current quality of life and does not have a
problem living on liquid diet and actually prefers this over any surgical intervention.
Plan:
With regards to her duodenal stricture peptic ulcer disease will continue with maximal medical management.
Possible there is a degree of acute edema as well as chronic stricturing. With treatment and some improvement in acute edema the degree of stenosis may improve to the point of better tolerance of p.o. intake but I suspect it will be unlikely to
progress past full liquids/pur�es/soft foods. However patient is satisfied with this outcome from a quality of life standpoint and states she would prefer it over surgery which would be antrectomy with vagotomy and gastrojejunostomy with probable
challenging management of a chronically scarred duodenal stump (i.e. high risk of stump blowout).
Therefore continue with current treatment and also could consider endoscopic balloon dilation of duodenal stricture understanding that it may only be temporary and limited therapeutic option particularly if there is ongoing noncompliance.
With regards to her end colostomy and large parastomal hernia. She states again that she would rather live with her hernia and colostomy rather than undergo surgical management. She can utilize a hernia support belt/ostomy hernia belt which I
showed to the patient found out where to purchase. Surgical management would have to entail either reversal of her ostomy completely reciting her end colostomy if she wished to go reversal given the size of this parastomal hernia.
Will follow peripherally givens patients clear wishes not to consider any surgery and no indications for emergent/urgent surgical interventions. She can followup with myself as an outpt if she would like.
[2023-07-28] MEDS: MYLICON 80 MG PO (18:40)
[2023-07-28] MEDS: ZOFRAN 4 MG IV (20:26)
[2023-07-28] MEDS: THERAGRAN 1 TABLET PO (21:31)
[2023-07-28 23:31] VITALS: BP 111/70
[2023-07-28] MEDS: NON-FORMULARY ITEM 1 UNIT PO (23:53)
[2023-07-29] MEDS: ROXICODONE 20 MG PO ×2 (01:17→17:26)
[2023-07-29] MEDS: FLEXERIL 10 MG PO ×2 (01:48→21:21)
[2023-07-29] MEDS: ZOFRAN 4 MG IV (02:26)
[2023-07-29] MEDS: MYLICON 80 MG PO ×3 (02:30→21:25)
--- NOTE | 2023-07-29 03:09 | PTCARENOTE ---
Pt. rang call ti asking for pain medication. This RN administered PRN 20 mg roxicodone. Pt. took medication then asked this RN to give her 'a shot.' When this nurse asked for clarification, pt became increasingly agitated saying 'I don't know,
just give me the medication with a 'd.' That's why I came to the hospital.' Educated patient that the pain medication on her PRN list was the roxicodone which she just took. Patient then stated 'fine, just give me the flexeril then.' Flexeril not
due at this time. This RN told patient that RN would be reaching out to SCOURING TRAIN OPERATOR CHIEF. АНДРЕЙ Johnson notified. While awaiting new orders, patient rang call ti. This RN entered room where patient stated 'I'll start screaming and wake up the whole unit, is
that what you want?' Pt again told by this RN that no new orders have been rec'd yet and assured patient that this RN would be back with patient as soon as new order was rec'd. Pt. stated 'I'm leaving to go to another hospital where they will give
me the 'd' shot.' This nurse tried reminding patient that she just rec'd the PRN roxicodone and she needs to give it chance to work. Patient stated 'get me a doctor up here, you're just a nurse.' New order rec'd for stat flexeril. Stat flexeril
administered. Pt. sitting rocking in bed. C/o 'spitting up acid.' This RN observed basin with small amount of yellow bile. This RN offered PRN zofran. Pt. then c/o gas pains. PRN simethicone administered. This RN reassessed pain level, patient said
that pain 'is not getting any better.' АНДРЕЙ Johnson notified. No new orders at this time. Plan of care ongoing.
[2023-07-29] MEDS: PROTONIX 100 IV ×2 (05:49→15:29)
[2023-07-29 06:04] LABS: ALT (SGPT) 26 U/L (0-35); AST (SGOT) 22 U/L (14-36); Albumin 3.4 g/dl (3.5-5.0); Alkaline Phosphatase 120 U/L (38-126); Blood Urea Nitrogen 16 mg/dl (7-17); Calcium 9.9 mg/dl (8.4-10.2); Carbon Dioxide 27 mmol/L (22-30); Chloride 104 mmol/L (98-107); Estimated Creatinine Clearance 71 ml/min; Glucose 94 mg/dl (70-99); Magnesium 2.1 mg/dl (1.6-2.3); Phosphorus 3.9 mg/dl (2.5-4.5); Potassium 3.8 mmol/L (3.5-5.1); Sodium 140 mmol/L (135-145); Total Bilirubin 0.3 mg/dl (0.2-1.3); Total Protein 5.9 g/dl (6.3-8.2); eGFR > 60.00
--- NOTE | 2023-07-29 06:13 | PTCARENOTE ---
While doing rounds, asked patient if she needed anything. Patient sat up and started moaning in the bed asking for pain medicine. No PRN pain medications due at the time. АНДРЕЙ Johnson notified. Instructed to give simethicone until roxicodone was
due. Offered simethicone to the patient who declined. АНДРЕЙ Johnson notified. Plan of care ongoing.
[2023-07-29 08:41] VITALS: BP 131/62
[2023-07-29] MEDS: NICODERM TRANSDERMAL 21 MG TRANSDERM (08:56)
[2023-07-29] MEDS: MIRALAX 17 GRAMS PO (08:56)
[2023-07-29] MEDS: CARAFATE 1 GRAM PO ×2 (08:57→20:00)
[2023-07-29] MEDS: NON-FORMULARY ITEM 20 MG PO (08:58)
[2023-07-29] MEDS: HEPARIN 5000 UNITS SC ×2 (08:58→20:00)
--- NOTE | 2023-07-29 09:10 | W.PN.HOSP.TC ---
Addendum entered and electronically signed by Frantz Corrales DO 07/29/23 13:59:
I spoke with patient's nurse this afternoon about how she is doing.
Apparently she is still very somnolent according to nursing. Patient was given an extra dose of Flexeril overnight for unclear reasons. She apparently is also taking her own Benadryl without permission.
Informed the nurse to confiscate all her home medications. She should not be taking her own meds in the hospital. Avoid extra doses of Flexeril as this will only sedate her further, especially in light of her chronic opioid use.
Patient also having ongoing abdominal pain. Not tolerating oral intake.
Original Note:
Today's Communication/Plan
-
Continue current care
Discharge planning
Assessment / Plan
Assessment / Plan
Gen-alert, awake, NAD, cachectic
HEENT-NC, AT, anicteric, clear oral mm
Neck-supple
CV-reg, no M, +S1/S2
Lungs-clear B/L
Abd-soft, NT, ND
Ext-no edema
Musculoskeletal-no cyanosis, clubbing
Skin-warm and dry
Neuro-grossly non-focal
Psych-calm, cooperative
Intractable vomiting - suspect multifactorial etiology including duodenal stenosis related to known duodenal ulcer, chronic opioid use, etc. Upper GI series shows severe stricture in the proximal duodenum. General surgery consulted, plan to treat
medically per patient wishes as she wants to avoid any surgical procedures.
Continue pur�ed diet. I explained to patient that the treatment of her condition is not analgesics but is long-term treatment with dietary modification, acid suppression, avoiding NSAIDs and smoking.
I explained to patient that she can be discharged later today if she feels better. Outpatient follow-up with gastroenterology.
Gastroenterology has provided samples of Voquezna as aa acid reyes to take at home. This will likely require prior authorization given the high cost.
Also recommend small frequent meals as opposed to 3 large meals a day. Currently she has no desire to eat breakfast this morning.
Duodenal ulcer - no evidence of bleeding clinically. Hemoglobin is normal. She denies melena or hematochezia. She is not on proton pump inhibitor at home due to complaints of bloating. I suspect most of her bloating is probably related to the
duodenal stenosis rather than a side effect of proton pump inhibitor therapy.
Continue IV Protonix. Voquezna on discharge, pepcid, carafate.
Chronic pain syndrome/chronic opiate dependence - she is on 200 mcg of fentanyl patch every 48 hours, although it is prescribed every 72 hours. Oxycodone 20 mg every 8 hours as needed for breakthrough. Cyclobenzaprine 10 mg daily as needed.
Recently prescribed MS Contin 200 mg tablets but she could not tolerate and went into opiate withdrawal due to her nausea and vomiting. She is back on her fentanyl patch now with adequate pain control. She states she was up to 400 mcg of fentanyl
patch in the past.
Essential hypertension -stable.
Mild intermittent asthma -stable.
Fibromyalgia
Severe protein calorie malnutrition
Tobacco dependence
Full code
Dispo - possible discharge home later today if she feels better, less abominal pain. Outpatient follow up with PCP and GI.
Anticipated Discharge: Today
Subjective/Interval History
-
Date of Service: July 29, 2023
Patient seen and examined. Had severe abdominal pain last night after dinner. Did not eat breakfast this morning.
Objective Data
-
Labs:
Laboratory Results
07/29/23
05:07
Sodium 140
Potassium 3.8
Chloride 104
Carbon Dioxide 27
BUN 16
Creatinine 0.6
Glucose 94
Calcium 9.9
Total Bilirubin 0.3
AST 22
ALT 26
Alkaline Phosphatase 120
Vital Signs:
Vital Signs
Temp Pulse Resp BP Pulse Ox
98.5 F 81 16 131/62 91
07/29/23 08:41 07/29/23 08:41 07/29/23 08:41 07/29/23 08:41 07/29/23 08:41
I&O
07/28/23 07/29/23 07/30/23
06:59 06:59 06:59
Intake Total 1800 / 1800 660 / 660
Balance 1800 / 1800 660 / 660
Review of Systems
-
History Source: Patient
All other systems: Reviewed and negative
[2023-07-29] MEDS: 0.45%NACL 1000 IV (15:29)
[2023-07-29 15:45] VITALS: BP 117/72
--- NOTE | 2023-07-29 15:59 | PTCARENOTE ---
at 1355 pt reported that she took her own Benadryl this morning. Dr. corrales and [employer] floorperson Juliane made aware. security came to floor and went through pt belongings. all medications collected and sent to pharmacy. pharmacy confirmed all Meds
were OTC and no controlled substances found. Meds will remain locked in pharmacy until discharge.
at 1545 pt requested medications. pt reported numbness in lower lip/chin. pt found to have facial droop. Dr. Corrales notified via tt. Dr. corrales evaluated pt at bedside without concern or further work up.
--- NOTE | 2023-07-29 16:02 | W.PN.UPDATE ---
Update Note
Progress Note Update
Asked by nursing to evaluate patient for complaints of numbness.
Patient seen and examined. Complaining of perioral numbness, numbness and feet and hands. She is a very vague historian and cannot tell me the duration of her symptoms but I gather that they are not new.
I see no obvious neurologic deficits. No facial droop on examination. Nonfocal on upper and lower extremity exam.
Patient states she is unsteady when she walks.
Will consult PT/OT.
Electrolytes this morning were normal. Will recheck in the morning.
She can be discharged when tolerating diet.
Discussed with GI service.
--- NOTE | 2023-07-29 16:14 | W.PN.GI.CBS2 ---
Addendum entered and electronically signed by Shiraz Hurt MD 07/29/23 18:44:
I saw and examined the patient.
The TELEVISION AND RADIO REPAIRER's note was reviewed and I agree with the note.
Continues to have abdominal pain/nausea/vomiting.
Recurrent duodenal ulcer with stenosis ( non compliance with PPI)
Chronic opioid use
-- Pur�ed diet as tolerated
-- Minimize opioid use
-- Pain management as per medical team
--Patient is refusing surgical intervention at this point
--Continue PPI/ carafate . Voquenza was added
--Avoid NSAIDs. Smoking cessation advised
-- Continue bowel regimen
-- Follow-up with Dr. Pryor as outpatient.
Original Note:
Today's Communication / Plan
-
some vomiting but not taking much intakes
issues with pain control overnight-- was reported to answering service overnight concern for ' abuse' with pain meds and management-- I reviewed with nursing staff and retail pharmacy manager concern as also concern for patient taking own medication supply leading
to lethargy with benadryl use
discussed with patient use of Benadyl will lead to worsening symptoms and also gastroparesis
cont pureed diet
cont Protonix gtt and add Voquenza -- to see if she can tolerate. She will require precert if helping
limit narcotics as able -- will need pain management outpatient to follow
cont Miralax
ok for mylicon PRN
stressed NSAID avoids and limits with Tylenol use
appreciate surgical evaluation -- discussed again recommendation as patient refused surgical intervention
some complaint of numbness-- Dr. Nikky bain-- pt given information on new medication Voquenza-- no reports of numbness as side effect
Assessment / Plan
-
The pt is a 62 year old female with a past medical history significant for asthma/COPD, chronic pain syndrome on high doses of chronic opiates, fibromyalgia, tobacco use, h/o prior bowel obstruction with partial colectomy and colostomy (2013) who
opted not to have reversal, parastomal hernia, and duodenal ulcers who complains of worsening upper abdominal pain. Upon review of records, she was initially admitted to in January 2023 with similar symptoms and was found to have severe
gastritis and multiple non-bleeding duodenal ulcers. She has had noncompliance with PPI therapy due to significant bloating therefore has not been taking it and these ulcers ultimately have not been able to heal. She has had symptoms both with
omeprazole and pantoprazole. She had recurrent hospitalization in July with recurrent symptoms. She had been taking NSAIDs as well at that time. She had an EGD performed on 07/18/2023 that showed erythema in the stomach. Small hiatal hernia.
Nonbleeding duodenal ulcer with no stigmata of bleeding with stenosis. The lesion was 10 millimeters in largest dimension. This was stenotic and unable to be passed with EGD scope. The patient did sign herself out AMA on 07/18/2023 at 8 PM. She
presents again with recurrent symptoms of nausea and vomiting unable to tolerate much oral intake. She is only been able to drink liquids such as Gatorade. She again declined oral PPI therapy but has been placed on a PPI drip which she has been
tolerating. She does take large amounts of narcotics including fentanyl patch, oral oxycodone and high-dose, although her fentanyl patches had been stopped and she was only continued on morphine and oxycodone but she had resumed her leftover
patches. On admission her labs showed: WBC 15.7, hemoglobin 14.6, hematocrit 44.0, platelet count 375, sodium 139, potassium 4.4, chloride 99, CO2 32, BUN 30, creatinine 0.7, glucose 108, total bilirubin 0.3, AST 35, ALT 37, alk phos 116, lipase 85.
She was made n.p.o. and a upper GI series with small bowel follow-through was ordered which was completed this morning and is pending. She reports she is tolerating small yessenia of Gatorade currently. She does have some residual nausea without
vomiting.
07/26- UGI
1. SEVERE STRICTURE (greater than 70% diameter) in the PROXIMAL DUODENUM. Diagnostic possibilities are (1) a benign stricture secondary to peptic ulcer disease and duodenitis or (2) adenocarcinoma.
2. Mild scarring and mucosal irregularity in the greater curvature of the gastric antrum.
3. Mild esophageal motility disorder.
Problem list:
-Recurrent duodenal ulcer with stenosis secondary to noncompliance with PPI
-Abdominal bloating/pain
-Persistent nausea/vomiting
-Protein calorie malnutrition with a BMI of 16.5/wt loss
-Leukocytosis, appears chronic
-Large parastomal hernia
-History of bowel obstruction with partial colectomy and colostomy placement in 2013
-Chronic narcotic use
-Current cigarette smoker
Other medical problems:
-Asthma/COPD
-Fibromyalgia
-Hypertension
Recommendations:
some vomiting but not taking much intakes
issues with pain control overnight-- was reported to answering service overnight concern for ' abuse' with pain meds and management-- I reviewed with nursing staff and retail pharmacy manager concern as also concern for patient taking own medication supply leading
to lethargy with benadryl use
discussed with patient use of Benadyl will lead to worsening symptoms and also gastroparesis
cont pureed diet
cont Protonix gtt and add Voquenza -- to see if she can tolerate. She will require precert if helping
limit narcotics as able -- will need pain management outpatient to follow
cont Miralax
ok for mylicon PRN
stressed NSAID avoids and limits with Tylenol use
appreciate surgical evaluation -- discussed again recommendation as patient refused surgical intervention
some complaint of numbness-- Dr. Sher to eval-- pt given information on new medication Voquenza-- no reports of numbness as side effect
Subjective
Subjective
Date of Service: July 29, 2023
still with pain and issues per staff with pain management overnight -- concern for patient taking her own medication including benadryl -- c/o numbness in legs and face
Objective
Data Reviewed
Laboratory Data:
Laboratory Results
07/28/23 05:22
07/29/23 05:07
Laboratory Results
Phosphorus 3.9 mg/dl (2.5-4.5) 07/29/23 05:07
Magnesium 2.1 mg/dl (1.6-2.3) 07/29/23 05:07
Total Bilirubin 0.3 mg/dl (0.2-1.3) 07/29/23 05:07
AST 22 U/L (14-36) 07/29/23 05:07
ALT 26 U/L (0-35) 07/29/23 05:07
Alkaline Phosphatase 120 U/L (38-126) 07/29/23 05:07
Lipase 85 U/L (23-300) 07/26/23 13:51
Vital Signs and I&O:
Vital Signs
Temp Pulse Resp BP Pulse Ox
98.0 F 90 16 117/72 94
07/29/23 15:45 07/29/23 15:45 07/29/23 15:45 07/29/23 15:45 07/29/23 15:45
I&O
07/28/23 07/29/23 07/30/23
06:59 06:59 06:59
Intake Total 1800 / 1800 660 / 660
Balance 1800 / 1800 660 / 660
Physical Exam
Physical Exam
HEENT: Anicteric and Moist mucous membranes
Cardiology: Normal Sinus Rhythm
Pulmonary: Clear
GI: Soft, Non Distended, Tender (diffuse ) and Other (left sided ostomy with parastomal hernia)
Extremities: No Edema
Neuro: Non Focal
--- NOTE | 2023-07-29 16:54 | CM ---
Pt sleeping on CM rounds.
Mediated for pain as needed.
Started diet IDDSI 07/28/23.
Offered VN at admission pt declined.
PLAN Home no needs
[2023-07-29] MEDS: DURAGESIC 100 MCG/HR PATCH 2 PATCH TRANSDERM (18:27)
--- NOTE | 2023-07-29 19:12 | PTCARENOTE ---
pt requesting fent patches to be removed from neck and new patches be replaced in same location. this nure verified with pharmacy, neck is not appropriate placement, arms, chest, or back are appropriate. fent patch placed on R chest wall, second
patch placed on R upper back. family updated at bedside.
[2023-07-29] MEDS: THERAGRAN 1 TABLET PO (21:20)
[2023-07-29] MEDS: MELATONIN 5 MG PO (22:12)
[2023-07-29 23:00] VITALS: BP 112/86
[2023-07-30] MEDS: NON-FORMULARY ITEM PO (01:03)
[2023-07-30] MEDS: ZOFRAN 4 MG IV ×2 (01:09→15:36)
--- NOTE | 2023-07-30 01:34 | W.PN.UPDATE ---
Update Note
Progress Note Update
2200 Per RN- pt requesting Benadryl for sleep. States pt takes it nightly.
When reviewing chart, Benadryl order was d/c today due to pt being lethargic and also noted to be taking her own from home. Also per GI note 'discussed with patient use of Benadryl will lead to worsening symptoms and also gastroparesis.'
Benadryl not ordered by this provider. Melatonin ordered x1
2329 Pt had fentanyl patch replaced today by daysdeft nurse. PT places patched on sides of neck at home and per pharmacy this is not an approved site thus patches were placed to right chest wall and right upper back. Now pt complaining 'she is in
withdrawal' because patches are not on her usual area (neck). Highly unlikely pt is going through withdrawal especially since she is already on high amounts of oxycodone q 8 h.
For now, will let RN remove patches and place on sides of neck. Pt with threat to 'obtain a shoe worker.'
--- NOTE | 2023-07-30 01:39 | W.PN.UPDATE ---
Update Note
Progress Note Update
Floor nurse requested provider to bedside. In attempt to assess patient completely she sat in the position rocking back and forth stating, 'I am not good with people, I wish I could explain what is going on.' Patient presents restless,
agitated, complains of nausea, emesis, pain from 'back to abdomen' and 'shooting down legs like lightening.' Then immediately would deny pain. Observed patient attempt to force emesis and spit saliva into basin and claiming it was vomit. She
continued to rock while sitting in like position asking to be fixed. Sister, Argelia on phone requesting Ativan for anxiety to 'calm her down.' Offered PRN pain medication and patient then denied that what she is experiencing is pain. Offered a
1x dose of Atarax for anxiety and restlessness. Patient agreed to Atarax. Nurse offered Atarax and patient then wanted PRN pain medication. Education done on need to do one intervention at a time to see what is working to help determine route cause
of symptoms.
[2023-07-30] MEDS: ATARAX 10 MG PO (01:52)
[2023-07-30] MEDS: ROXICODONE 20 MG PO (03:33)
[2023-07-30] MEDS: 0.45%NACL 1000 IV (03:34)
--- NOTE | 2023-07-30 04:35 | PTCARENOTE ---
Pt. requesting several times at start of shift to move fentanyl patches. Confirmed with pharmacy, that the patches are to be placed on the trunk, back, arm, or chest. Educated patient several times and instructed not to remove patches and place them
on her neck. Patient c/o feeling like she's 'withdrawling.' Pt. requested benadryl, stating 'I take it at night.' This RN checked MAR, PRN benadryl no longer active on med list. АНДРЕЙ Rodriguez notified of pt request. 1x dose of melatonin
ordered. Administered melatonin to patient. Pt. continued to say that she felt like she was withdrawling and needed the fentanyl patches moved. PRN oxycodone not due for administration. Decal Transferrer in to see patient. Patient stated 'if my fentanyl
patches are moved to my neck, I won't bother you anymore.' АНДРЕЙ Rodriguez notified about request to change location of patches. While awaiting for order to change location, patient yelling loudly from room. This RN and another RN on the floor
entered room where patient stated 'my patch fell off' while patch was in patient's hands. Fentanyl patch replaced back on patients chest and observed the second fentanyl patch on patients R upper back. Patient continuing to yell, sitting in
position on her bed. SHIP SCRAPER ordered for fentanyl patches to be moved to neck. This RN and another RN on the floor entered the room to change placement of fentanyl patches. Patient already removed patches and placed them on her neck. When asked why she
removed patches herself after being instructed not to do so patient yelled that she was withdrawling. This RN asked patient what she could be withdrawling from. Patient unable to answer. Patients sister on the phone during entire interaction with
patient. Pt. coughing, forcing herself to gag multiple times. Pt. still rocking back and forth in position on her bed. Pt. sister Argelia requesting that ativan is ordered for patient. Pt and sister Argelia reminded that doctor wants to avoid
narcotics/sedatives since patient was found taking her own medications earlier in the day. Patient requested the nursing user support analyst supervisor again and a doctor. Nursing user support analyst supervisor and АНДРЕЙ noified. АНДРЕЙ Paul came up to see patient. This RN,
supercharger repair supervisor, another floor RN, АНДРЕЙ, and nursing user support analyst supervisor in with patient. Patient agitated, c/o of 'lightening bolts' in her legs, pain in her back through abdomen. Pt. c/o nausea, PRN zofran administered. Patients sister Argelia continued requesting
ativan for patient. АНДРЕЙ and user support analyst supervisor discussed plan of care with patient and sister. PRN atarax x1 ordered and administered. Pt. then requested to also take oxycodone with atarax. RN educated patient that both could not be administered at the
same time. Patient took atarax.
[2023-07-30 07:00] VITALS: BP 101/70
--- NOTE | 2023-07-30 07:17 | W.PN.HOSP.TC ---
Today's Communication/Plan
-
Discharge
Assessment / Plan
Assessment / Plan
Gen-alert, awake, NAD, cachectic
HEENT-NC, AT, anicteric, clear oral mm
Neck-supple
CV-reg, no M, +S1/S2
Lungs-clear B/L
Abd-soft, NT, ND
Ext-no edema
Musculoskeletal-no cyanosis, clubbing
Skin-warm and dry
Neuro-grossly non-focal
Psych-calm, cooperative
Intractable vomiting - suspect multifactorial etiology including duodenal stenosis related to known duodenal ulcer, chronic opioid use, etc. Upper GI series shows severe stricture in the proximal duodenum. General surgery consulted, plan to treat
medically per patient wishes as she wants to avoid any surgical procedures.
Continue pur�ed diet. I explained to patient that the treatment of her condition is not analgesics but is long-term treatment with dietary modification, acid suppression, avoiding NSAIDs and smoking. Avoid anticholinergic medications such as
Benadryl as they will only cause more GI symptoms due to slowed motility. Discussed with patient. Apparently patient was taking her own supply of [id number] medications in the hospital including Benadryl. Supply was confiscated by nursing.
Gastroenterology has provided samples of Voquezna as aa acid reyes to take at home. This will likely require prior authorization given the high cost.
Also recommend small frequent meals as opposed to 3 large meals a day. Currently she has no desire to eat breakfast this morning.
Duodenal ulcer - no evidence of bleeding clinically. Hemoglobin is normal. She denies melena or hematochezia. She is not on proton pump inhibitor at home due to complaints of bloating. I suspect most of her bloating is probably related to the
duodenal stenosis rather than a side effect of proton pump inhibitor therapy.
Continue IV Protonix. Voquezna on discharge, pepcid, carafate.
Chronic pain syndrome/chronic opiate dependence - she is on 200 mcg of fentanyl patch every 48 hours, although it is prescribed every 72 hours. Oxycodone 20 mg every 8 hours as needed for breakthrough. Cyclobenzaprine 10 mg daily as needed.
Recently prescribed MS Contin 200 mg tablets but she could not tolerate and went into opiate withdrawal due to her nausea and vomiting. She is back on her fentanyl patch now with adequate pain control. She states she was up to 400 mcg of fentanyl
patch in the past.
Essential hypertension -stable.
Mild intermittent asthma -stable.
Fibromyalgia
Severe protein calorie malnutrition
Tobacco dependence
Full code
Dispo -medically stable for discharge home today. Outpatient follow-up with primary care doctor, GI, pain management.
35 minutes spent in discharge process.
Anticipated Discharge: Today
Subjective/Interval History
-
Date of Service: July 30, 2023
Patient seen and examined. Complaining of 'rough night'.
Objective Data
-
Labs:
Laboratory Results
07/30/23
05:26
Sodium Pending
Potassium Pending
Chloride Pending
Carbon Dioxide Pending
BUN Pending
Creatinine Pending
Glucose Pending
Calcium Pending
Total Bilirubin Pending
AST Pending
ALT Pending
Alkaline Phosphatase Pending
Vital Signs:
Vital Signs
Temp Pulse Resp BP Pulse Ox
97.9 F 102 22 112/86 99
07/29/23 23:00 07/29/23 23:00 07/29/23 23:00 07/29/23 23:00 07/29/23 23:00
I&O
07/29/23 07/30/23 07/31/23
06:59 06:59 06:59
Intake Total 660 / 660 960 / 960
Balance 660 / 660 960 / 960
Review of Systems
-
History Source: Patient
All other systems: Reviewed and negative
--- NOTE | 2023-07-30 07:18 | W.DS.TRANS ---
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
-
Discharge Instructions:
Discharge Diagnosis/Procedures Severe duodenal stenosis, duodenal ulcer, severe
malnutrition
Diet Other diet
Additional Diets Pur�ed diet, small frequent meals
Activity As tolerated
Driving Restrictions As prior to admission
Bathing Restrictions None
Instructions:
Stand-Alone Forms:
Changes to Home Medications: No
Discharge Medications:
DC Medications w/original date entered in [employer]
cyclobenzaprine 10 mg tablet 10 mg PO DAILYPRN PRN muscle spasm 11/07/18
milnacipran 100 mg tablet (Savella) 100 mg PO DAILY@0000 fibromyalgia 11/07/18
clonidine 0.3 mg/24 hr weekly transdermal patch 1 patch transdermal QWEEK Blood Pressure 02/08/23
metoprolol succinate 200 mg tablet,extended release 24 hr 100 mg PO DAILY@0000 Blood Pressure 02/08/23
oxycodone 20 mg tablet 20 mg PO Q8HPRN PRN mild withdrawal 02/08/23
therapeutic multivitamin 1 tab PO HS supplement 02/08/23
fentanyl 100 mcg/hr transdermal patch 2 patch transdermal Q72H Pain 07/16/23
simethicone 80 mg chewable tablet 80 mg PO QIDPRN PRN gas pain 07/16/23
diphenhydramine HCl 25 mg capsule (Benadryl) 25 mg PO HSPRN PRN sleep 07/26/23
nicotine 21 mg/24 hr daily transdermal patch 1 patch transdermal DAILY Nicotine replacement 07/26/23
sucralfate 1 gram tablet 1 g PO BID Gastrointestinal Issue 07/26/23
Voquenza 20 mg PO DAILY ##0 07/29/23
famotidine 20 mg tablet 20 mg PO BID #60 tabs 07/29/23
polyethylene glycol 3350 17 gram oral powder packet (Miralax) 17 g PO DAILY constipation #0 ea 07/29/23
Home Medication Changes
Pending Results: No
[2023-07-30] MEDS: MIRALAX 17 GRAMS PO (08:11)
[2023-07-30] MEDS: NICODERM TRANSDERMAL 21 MG TRANSDERM (08:11)
[2023-07-30] MEDS: CARAFATE 1 GRAM PO (08:11)
[2023-07-30] MEDS: NON-FORMULARY ITEM 20 MG PO (08:12)
[2023-07-30] MEDS: HEPARIN SC (08:18)
--- NOTE | 2023-07-30 08:23 | W.PN.UPDATE ---
Update Note
Progress Note Update
for discharge today-- sent message to office to confirm 08/09 EGD appt. Office to call next week to see if patient would like to proceed with tyroneert meli Steele.
[2023-07-30 08:52] LABS: ALT (SGPT) 21 U/L (0-35); AST (SGOT) 24 U/L (14-36); Albumin 3.4 g/dl (3.5-5.0); Alkaline Phosphatase 108 U/L (38-126); Blood Urea Nitrogen 16 mg/dl (7-17); Calcium 9.2 mg/dl (8.4-10.2); Carbon Dioxide 28 mmol/L (22-30); Chloride 104 mmol/L (98-107); Estimated Creatinine Clearance 71 ml/min; Glucose 85 mg/dl (70-99); Phosphorus 3.3 mg/dl (2.5-4.5); Potassium 3.5 mmol/L (3.5-5.1); Sodium 139 mmol/L (135-145); Total Bilirubin 0.3 mg/dl (0.2-1.3); Total Protein 5.7 g/dl (6.3-8.2); eGFR > 60.00
[2023-07-30] MEDS: PROTONIX 100 IV (09:53)
[2023-07-30] MEDS: FLEXERIL 10 MG PO (09:58)
[2023-07-30] MEDS: PROTONIX IV (10:02)
--- NOTE | 2023-07-30 14:48 | CM ---
Pt for d/c today
Declined HH
Has ride when d/c'ed
Plan - anticipate home no needs
[2023-07-30 15:00] VITALS: BP 132/82
[2023-07-30] MEDS: MYLICON 80 MG PO (15:32)
--- NOTE | 2023-07-30 15:40 | PTCARENOTE ---
PCT Ludin Bowie reported to this nurse that pt took photos of him while walking into room. this nurse entered room to administer requested gi meds, found pt aiming phone camera at this nurse and attempting to take photos. pt asked 'why not' when
questioned about taking photos of staff. this nurse explain that is was not legal to take photos, record videos, or take verbal recordings of staff just how we are not able to do the same to patients. incident report to nursing meat supervisor Mita.
== END 2023-07-30 16:54 | disposition home or self-care (01) | DRG 380 ==
LOC: 3 WEST ACU 16:45
PROVIDERS: Nurse Practitioner; ADMITTING PHYSICIAN Hospitalist; CONSULT PHYSICIAN Internal Medicine; CONSULT PHYSICIAN Surgery; EMERGENCY PHYSICIAN Emergency Medicine; FAMILY PHYSICIAN Family Medicine
DX: K31.5 Obstruction of duodenum (principal); E43 Unspecified severe protein-calorie malnutrition; Z68.1 Body mass index [BMI] 19.9 or less, adult; R64 Cachexia; F11.20 Opioid dependence, uncomplicated; I10 Essential (primary) hypertension; J44.89 Other specified chronic obstructive pulmonary disease; J45.20 Mild intermittent asthma, uncomplicated; K26.9 Duodenal ulcer, unspecified as acute or chronic, without hemorrhage or perforation; R54 Age-related physical debility; F17.210 Nicotine dependence, cigarettes, uncomplicated; G89.4 Chronic pain syndrome; K29.70 Gastritis, unspecified, without bleeding; K29.80 Duodenitis without bleeding; K43.5 Parastomal hernia without obstruction or gangrene; K44.9 Diaphragmatic hernia without obstruction or gangrene; K22.4 Dyskinesia of esophagus; K31.1 Adult hypertrophic pyloric stenosis; M79.7 Fibromyalgia; T47.1X6A Underdosing of other antacids and anti-gastric-secretion drugs, initial encounter; Z91.128 Patient's intentional underdosing of medication regimen for other reason; Z93.3 Colostomy status; Z90.49 Acquired absence of other specified parts of digestive tract; Z87.19 Personal history of other diseases of the digestive system; Z88.0 Allergy status to penicillin; Z88.1 Allergy status to other antibiotic agents; Z88.8 Allergy status to other drugs, medicaments and biological substances; Z96.653 Presence of artificial knee joint, bilateral
CPT/HCPCS: 74246; 80053; 83690; 83735; 84100; 85025; 85027; 86803; 96361; 96374; 99285; 99406